=== PATIENT | male | born 1995 | race Caucasian/White ===

== ENCOUNTER 2018-04-16 13:57 | Inpatient (IN) ==
--- NOTE | 2018-04-16 17:41 | ED ---
HPI General Chief Complaint: Neck Pain/Injury Stated Complaint: Physent / neck complaint Time Seen by Provider: 04/16/18 17:03 History of Present Illness HPI Narrative: The patient is a 23-year-old male with a history of 5 years worth of IV drug abuse presenting to the emergency department following the result of an MRI that was done for neck and left shoulder pain. The patient reports that for the past week he has an increase in his left shoulder pain that is worse when he wakes up and has in the past few days developed numbness that radiates from his shoulder down to the thumb index and middle finger. The patient also reports that he has had a stiffness in his neck that has been getting worse over the past week and has given him limited range of motion in his neck. He denies any recent trauma that may have caused symptoms. He denies any alleviating or aggravating factors for his neck stiffness versus left shoulder pain. He denies any fever, chills, nausea, vomiting, abdominal pain, diarrhea, focal weakness, vision changes, headache, or shortness of breath. Related Data Home Medications Medication Instructions Recorded Confirmed No Known Home Medications 04/16/18 04/16/18 Allergies Allergy/AdvReac Type Severity Reaction Status Date / Time No Known Allergies Allergy Unverified 04/16/18 17:35 Review of Systems Constitutional Denies chills and Denies fever(s) Eyes Denies eye pain and Denies photophobia ENT Denies hearing loss and Denies sore throat Cardiovascular Denies chest pain and Denies diaphoresis Respiratory Denies cough and Denies dyspnea Gastrointestinal Denies diarrhea and Denies nausea Genitourinary Denies difficulty urinating and Denies flank pain Musculoskeletal Reports limited range of motion (Left shoulder limited range of motion) and Reports neck pain (Neck stiffness and limited range of motion) Integumentary/Breasts Denies rash and Denies sores Neurologic Denies vertigo, Denies focal weakness and Reports numbness (From left shoulder radiating down to left arm) Psychiatric Denies anxiety and Denies irritability Allergic/Immunologic Denies urticaria and Denies wheezing [facility] Medical History Medical History Patient denies medical problems (Acute) Surgical History Surgical History No history of previous surgery (Acute) Social History Social History Recent Travel in [facility] within the Last 8 Weeks: No Recent Out of Country Travel within the Last 8 Weeks: No Exam Narrative Exam Narrative: GENERAL: Well-developed and thin male appearing in no acute respiratory distress. SKIN: Focused skin assessment warm/dry. Multiple tattoos. HEAD: Atraumatic. Normocephalic. EYES: Pupils equal and round. No scleral icterus. No injection or drainage. ENT: No nasal bleeding or discharge. Mucous membranes pink and moist. NECK: Trachea midline. No JVD. CARDIOVASCULAR: Regular rate and rhythm. No murmur appreciated. RESPIRATORY: No accessory muscle use. Clear to auscultation. Breath sounds equal bilaterally. GASTROINTESTINAL: Abdomen soft, non-tender, nondistended. Hepatic and splenic margins not palpable. MUSCULOSKELETAL: No obvious deformities. No clubbing. No cyanosis. No edema. Mild right lower chest tenderness to palpation. No tenderness, erythema, or edema over the cervical or thoracic vertebrae. Limited neck range of motion on flexion and extension, limited shoulder abduction and adduction. 5/5 strength in all 4 extremities NEUROLOGICAL: Awake and alert. Cranial nerves II through XII were normal. Motor grossly within normal limits. Normal speech. Course Initial Documented Vital Signs Temperature 98.0 F 04/16/18 14:37 Pulse Rate 78 04/16/18 14:37 Respiratory Rate 18 04/16/18 14:37 Blood Pressure 114/68 04/16/18 14:37 Pulse Oximetry 98 04/16/18 14:37 Last Documented Vital Signs Temperature 98.0 F 04/16/18 14:37 Pulse Rate 78 04/16/18 14:37 Respiratory Rate 18 04/16/18 14:37 Blood Pressure 114/68 04/16/18 14:37 Pulse Oximetry 98 04/16/18 14:37 Medical Decision Making [facility] Narrative Medical decision making narrative: The patient is a 23-year-old male with history of IV drug abuse presenting to the emergency department following an MRI that showed an epidural abscess. The patient denies any fever, chills, nausea, or vomiting but does endorse a 5 year history of on and off IV drug abuse. The patient has had limited range of motion of his neck and shoulder with progressive paresthesias down the left arm. This is likely an epidural abscess related to his IV drug abuse. He will be administered IV antibiotics and the neurosurgical team recommends admission. Differential Diagnosis Differential Diagnosis: Epidural abscess versus osteomyelitis versus vertebral seroma versus nerve impingement versus muscle strain versus disc herniation Lab Data Result diagrams: 04/16/18 18:27 04/16/18 18:27 Lab Results 04/16/18 Range/Units 18:27 WBC 11.8 H (4.0-11.0) th/mm3 RBC 4.49 L (4.50-5.90) mil/mm3 Hgb 12.6 L (13.0-17.0) gm/dL Hct 37.3 L (39.0-51.0) % MCV 83.1 (80.0-100.0) fL MCH 28.1 (27.0-34.0) pg MCHC 33.8 (32.0-36.0) % RDW 14.7 (11.6-17.2) % Plt Count 301 (150-450) th/mm3 MPV 7.6 (7.0-11.0) fL Neut % (Auto) 74.2 H (16.0-70.0) % Lymph % (Auto) 17.0 (9.0-44.0) % Lynn % (Auto) 7.1 (0.0-8.0) % Eos % (Auto) 1.1 (0.0-4.0) % Baso % (Auto) 0.6 (0.0-2.0) % Neut # (Auto) 8.8 H (1.8-7.7) th/mm3 Lymph # (Auto) 2.0 (1.0-4.8) th/mm3 Lynn # (Auto) 0.8 (0.0-0.9) th/mm3 Eos # (Auto) 0.1 (0.0-0.4) th/mm3 Baso # (Auto) 0.1 (0.0-0.2) th/mm3 WBC Differential . Differential Comment Auto diff final Imaging Data Radiologist's impression: Chest X-Ray 04/16/18 17:41 CONCLUSION: No active disease. Discharge Plan Discharge Disposition Patient Disposition: 30 Still Patient Discharge Details Diagnosis: Acute osteomyelitis of cervical spine, Abscess in epidural space of cervical spine Physicians Team ED Provider: Rajinder Rdz Primary Care Provider: UNKNOWN, Rxs /Orders / Referrals /Forms Prescriptions: No Action No Known Home Medications RF: 0 Discharge Interventions Interventions: Vital Signs Last Done: 04/16/18 14:37 Status ED Status: With Doctor
[2018-04-16] MEDS ORDERED: HYDROmorphone PF Inj 2 MG/ML Vial IV.PUSH ONE (17:42)
--- NOTE | 2018-04-16 18:07 | XR ---
EXAM DATE: 04/16/2018 6:00 PM EDT AGE/SEX: 23 years / Male INDICATIONS: Chest pain. CLINICAL DATA: This is the patient's initial encounter. Patient reports that signs and symptoms have been present for 1 day and indicates a pain score of 5/10. MEDICAL/SURGICAL HISTORY: None. None. COMPARISON: No prior exams available for comparison. FINDINGS: A single AP view of the chest demonstrates the lungs to be symmetrically aerated without evidence of mass, infiltrate or effusion. The cardiomediastinal contours are unremarkable. Osseous structures a re intact. CONCLUSION: No active disease. Electronically signed by: Jabier Allen MD 04/16/2018 6:06 PM EDT
[2018-04-16] MEDS ORDERED: Bisacodyl 10 MG Supp RECTAL PRN (18:36)
[2018-04-16] MEDS ORDERED: Acetaminophen 325 MG Tablet PO PRN (18:36)
[2018-04-16] MEDS ORDERED: Temazepam 15 MG Capsule PO PRN (18:36)
[2018-04-16 18:51] LABS: Baso # (Auto) 0.1 th/mm3 (0.0-0.2); Baso % (Auto) 0.6 % (0.0-2.0); Eos # (Auto) 0.1 th/mm3 (0.0-0.4); Eos % (Auto) 1.1 % (0.0-4.0); Hematocrit 37.3 % (39.0-51.0); Hemoglobin 12.6 gm/dL (13.0-17.0); Mean Corpuscular HGB Conc 33.8 % (32.0-36.0); Mean Corpuscular Hemoglobin 28.1 pg (27.0-34.0); Mean Corpuscular Volume 83.1 fL (80.0-100.0); Mean Platelet Volume 7.6 fL (7.0-11.0); Mono # (Auto) 0.8 th/mm3 (0.0-0.9); Mono % (Auto) 7.1 % (0.0-8.0); Neut # (Auto) 8.8 th/mm3 (1.8-7.7); Neut % (Auto) 74.2 % (16.0-70.0); Platelet Count 301 th/mm3 (150-450); Red Blood Count 4.49 mil/mm3 (4.50-5.90); Red Cell Distribution Width 14.7 % (11.6-17.2); White Blood Count 11.8 th/mm3 (4.0-11.0)
[2018-04-16 19:00] LABS: Activated Partial Thrombo Time 29.1 sec (24.3-30.1)
[2018-04-16 19:07] LABS: Albumin 3.6 g/dL (3.4-5.0); Anion Gap 7 meq/L (5-15); Aspartate Aminotransferase 7 U/L (15-37); Blood Urea Nitrogen 14 mg/dL (7-18); Calcium 9.5 mg/dL (8.5-10.1); Chloride 101 meq/L (98-107); Glomerular Filtration Rate Greater Than 89 mL/min (>89); Glucose,Random 99 mg/dL (74-106); Potassium 4.3 meq/L (3.5-5.1); Sodium 139 meq/L (136-145)
[2018-04-16 19:08] LABS: Alanine Aminotransferase 20 U/L (12-78)
[2018-04-16 19:11] LABS: Alkaline Phosphatase 104 U/L (45-117); Total Protein 8.2 g/dL (6.4-8.2)
--- NOTE | 2018-04-16 19:44 | P.HPIM ---
History of Present Illness Primary Care Physician: UNKNOWN History of Present Illness: 23-year-old male with a history of IV heroin abuse who presents with one-week history of constant sharp posterior neck pain, constant left shoulder pain radiating to left arm, with associated left hand paresthesias. Patient denies any fevers, chills, chest pain, shortness of breath, nausea, vomiting, lightheadedness, dizziness, dysuria, diarrhea, constipation. Inpatient Certification: I certify that the inpatient services were ordered in accordance with Medicare regulations governing the order. This includes certification that hospital inpatient services are reasonable and necessary and in the case of services not specified as inpatient-only under 42 CFR 419.22(n), that they are appropriately provided as inpatient services in accordance to with the 2-midnight benchmark under 43 CFR 412.3(e) Estimated Total Length of Stay (Days): 10 Plans for Post Hospital Care: Not yet determined Review of Systems All other systems reviewed negative except as stated in HPI PMFSH - History History Provided By: Patient - Medical History Medical History: Medical History (Last Updated 04/16/18 @ 19:42 by Jonathan Saenz MD) Heroin abuse Patient denies medical problems - Surgical History Surgical History: Surgical History (Last Updated 04/16/18 @ 18:47 by Toshia Bone) No history of previous surgery - Family History Family History: Family History (Last Updated 04/16/18 @ 19:41 by Jonathan Saenz MD) Mother Healthy adult Father Diabetes - Tobacco History Second Hand Smoke Exposure: No Tobacco Use In Past 30 Days: Yes Smoking Status: Current every day smoker Tobacco Type: Cigarettes - Alcohol History How Often Do You Have a Drink Containing Alcohol: Never - Substance Use History Substance History: Active Abuse - Substance Use Type Opiates Status: Active Route Used: Intravenously Reason for Use: Get High - Travel History Recent Travel in the [place] Within the Last 8 Weeks: No Recent Travel Out of the Country Within the Last 8 Weeks: No - Immunization History Tetanus Immunization: <5 Years Hx Influenza Vaccine This Season: No Medications and Allergies Active Medications: Active Medications Acetaminophen (Tylenol) 650 mg PO Q4H PRN PRN Reason: Temp > 100.4 Al Hydroxide/Mg Hydroxide (Milk Of Magnesia Liq) 30 ml PO Q12H PRN PRN Reason: Mild Constipation Bisacodyl (Dulcolax Supp) 10 mg RECTAL DAILY PRN PRN Reason: SEVERE CONSITIPATION Lactulose (Lactulose Liq) 30 ml PO DAILY PRN PRN Reason: SEVERE CONSITIPATION Sennosides (Senokot) 17.2 mg PO Q12H PRN PRN Reason: Moderate Constipation Temazepam (Restoril) 15 mg PO HS PRN PRN Reason: INSOMNIA Allergies Allergy/AdvReac Type Severity Reaction Status Date / Time No Known Allergies Allergy Unverified 04/16/18 17:35 Home Medications Medication Instructions Recorded Confirmed Type No Known Home Medications 04/16/18 04/16/18 History Exam Vital signs: Vital Signs 04/16/18 14:37 Temperature 98.0 F Pulse Rate 78 Respiratory Rate 18 Blood Pressure 114/68 Pulse Oximetry 98 Intake & Output 04/16/18 04/16/18 04/17/18 06:59 18:59 06:59 Weight 74.843 kg Narrative: GENERAL: Patient sitting in bed. Appears comfortable. SKIN: Warm and dry. HEAD: Atraumatic. Normocephalic. EYES: Pupils equal and round. No scleral icterus. No injection or drainage. ENT: No nasal bleeding or discharge. Mucous membranes pink and moist. NECK: Trachea midline. No JVD. CARDIOVASCULAR: Regular rate and rhythm. RESPIRATORY: No accessory muscle use. Clear to auscultation. Breath sounds equal bilaterally. GASTROINTESTINAL: Abdomen soft, non-tender, nondistended. Hepatic and splenic margins not palpable. MUSCULOSKELETAL: Extremities without clubbing, cyanosis, or edema. No obvious deformities. NEUROLOGICAL: Awake and alert. No obvious cranial nerve deficits. Motor grossly within normal limits. Five out of 5 muscle strength in the arms and legs. Normal speech. PSYCHIATRIC: Appropriate mood and affect; insight and judgment normal. Results - Labs CBC & Chem 7: 04/16/18 18:27 04/16/18 18:27 Labs: Short CBC 04/16/18 Range/Units 18:27 WBC 11.8 H (4.0-11.0) th/mm3 Hgb 12.6 L (13.0-17.0) gm/dL Hct 37.3 L (39.0-51.0) % Plt Count 301 (150-450) th/mm3 BMP 04/16/18 18:27 Sodium 139 Potassium 4.3 Chloride 101 Carbon Dioxide 31.0 BUN 14 Creatinine 0.91 Calcium 9.5 Liver Function 08/02/18 Range/Units 18:27 Total Bilirubin 0.4 (0.2-1.0) mg/dL AST 7 L (15-37) U/L ALT 20 (12-78) U/L Alkaline Phosphatase 104 (45-117) U/L Albumin 3.6 (3.4-5.0) g/dL - Imaging Impressions Chest X-Ray 04/16/18 17:41 CONCLUSION: No active disease. Caprini VTE Risk Assessment Caprini VTE Risk Assessment: No/Low Risk (score <= 1) Caprini Risk Assessment Model: Point Value = 1 Point Value = 2 Point Value = 3 Point Value = 5 Age 41-60 Minor surgery BMI > 25 kg/m2 Swollen legs Varicose veins or History of unexplained or recurrent spontaneous Oral contraceptives or hormone replacement Sepsis (< 1 month) Serious lung disease, including pneumonia (< 1 month) Abnormal pulmonary function Acute myocardial infarction Congestive heart failure (< 1 month) History of inflammatory bowel disease Medical patient at bed rest Age 61-74 Arthroscopic surgery Major open surgery (> 45 min) Laparoscopic surgery (> 45 min) Malignancy Confined to bed (> 72 hours) Immobilizing plaster cast Central venous access Age >= 75 History of VTE Family history of VTE Factor V Leiden Prothrombin [id number] Lupus anticoagulant Anticardiolipin antibodies Elevated serum homocysteine Heparin-induced thrombocytopenia Other congenital or acquired thrombophilia Stroke (< 1 month) Elective arthroplasty Hip, pelvis, or leg fracture Acute spinal cord injury (< 1 month) Prophylaxis Regimen: Total Risk Factor Score Risk Level Prophylaxis Regimen 0-1 Low Early ambulation 2 Moderate Order ONE of the following: *Sequential Compression Device (SCD) *Heparin 5000 units SQ BID 3-4 Higher Order ONE of the following medications: *Heparin 5000 units SQ TID *Enoxaparin/Lovenox 40 mg SQ daily (WT < 150 kg, CrCl > 30 mL/min) *Enoxaparin/Lovenox 30 mg SQ daily (WT < 150 kg, CrCl > 10-29 mL/min) *Enoxaparin/Lovenox 30 mg SQ BID (WT < 150 kg, CrCl > 30 mL/min) AND/OR *Sequential Compression Device (SCD) 5 or more Highest Order ONE of the following medications: *Heparin 5000 units SQ TID (Preferred with Epidurals) *Enoxaparin/Lovenox 40 mg SQ daily (WT < 150 kg, CrCl > 30 mL/min) *Enoxaparin/Lovenox 30 mg SQ daily (WT < 150 kg, CrCl > 10-29 mL/min) *Enoxaparin/Lovenox 30 mg SQ BID (WT < 150 kg, CrCl > 30 mL/min) AND *Sequential Compression Device (SCD) Assessment and Plan - Plan //Suspected epidural abscess //Left upper extremity paresthesias -Likely secondary to IV drug use. = With outside MRI positive for epidural abscess Neurosurgery consulted. Appreciate assistance. = ESR 71, white blood cell count 11.8. Vitals within normal limits. = Await neurosurgery recommendations. Likely will need biopsy for cultures. Then can start antibiotics = Plan to consult infectious disease in the morning when cultures are obtained. //Left shoulder pain. Likely secondary to epidural abscess as above, however patient does have an incomplete right bundle branch block. Will check troponin. If this is negative, given patient's one-week duration of pain it is unlikely cardiac in nature. //Leukocytosis of 11.8. Likely secondary to infection from epidural abscess. Vitals otherwise stable. Continue to monitor //Tobacco abuse. Cessation counseling provided. //IV drug use. Heroin abuse Cessation counseling provided. Discussed Condition With: Patient, nurse, Dr. Fonseca
--- NOTE | 2018-04-16 20:41 | P.CONNS ---
History of Present Illness Service: Neurosurgery Consult date: 04/16/18 Requesting Physician: Rajinder Rdz Reason for Consult: Cervical discitis Primary Care Provider: UNKNOWN Chief Complaint: Neck and left shoulder, upper extremity pain History of Present Illness: 23-year-old male who states that 4 weeks ago he developed severe neck pain without radiation to the upper extremities. The pain was quite severe for approximately a week, then gradually subsided. He persisted with mostly moderate neck pain up until a week ago, when he developed pain radiating down the left shoulder and primarily dorsal aspect of the left arm and forearm with numbness in the same distribution as well as the first 3 digits of the left hand. No right upper extremity symptoms. He denies any fever chills or sweats in the past month. No blurred vision diplopia headaches. No confusion speech difficulty. No skin lesions or rash. No bowel or bladder dysfunction. No difficulty with pain weakness numbness in the lower extremities or difficulty with ambulation. He is a steady IV drug abuser. Review of Systems Constitutional: Denies anorexia, Denies body ache(s), Denies chills, Denies headache(s), Denies night sweats, Denies weakness, Denies weight loss Eyes: Denies blurry vision, Denies double vision Ears, Nose, Mouth, and Throat: Reports ringing in the ears, Denies abnormal hearing, Denies difficulty swallowing, Denies dizziness, Denies mouth lesions, Denies pain with swallowing Cardiovascular: Denies chest pain, Denies irregular heart rhythm Respiratory: Denies chest congestion, Denies cough, Denies shortness of breath Gastrointestinal: Denies abdominal pain, Denies nausea Genitourinary: Denies difficulty urinating Musculoskeletal: Reports neck pain, Reports numbness, Reports radiating pain into limb, Denies back pain, Denies body aches, Denies muscle weakness Neurologic: Denies abnormal speech, Denies confusion PMFSH - History History Provided By: Patient - Medical / Surgical Hx Neg / Unobtainable Medical Problems Denied: Yes Surgical History: (Right shoulder surgery) - Medical History Medical History: Medical History (Last Updated 04/16/18 @ 19:42 by Jonathan Saenz MD) Heroin abuse Patient denies medical problems - Surgical History Surgical History: Surgical History (Last Updated 04/16/18 @ 18:47 by Toshia Bone) No history of previous surgery - Family History Family History: Family History (Last Updated 04/16/18 @ 19:41 by Jonathan Saenz MD) Mother Healthy adult Father Diabetes - Tobacco History Second Hand Smoke Exposure: No Tobacco Use In Past 30 Days: Yes Smoking Status: Current every day smoker Tobacco Type: Cigarettes Packs Per Day: 1 - Alcohol History How Often Do You Have a Drink Containing Alcohol: Never - Substance Use History Substance History: Active Abuse - Substance Use Type Opiates Status: Active Route Used: Intravenously Reason for Use: Get High - Travel History Recent Travel in the [place] Within the Last 8 Weeks: No Recent Travel Out of the Country Within the Last 8 Weeks: No - Immunization History Tetanus Immunization: <5 Years Hx Influenza Vaccine This Season: No Medications and Allergies Active Medications: Active Medications Acetaminophen (Tylenol) 650 mg PO Q4H PRN PRN Reason: Temp > 100.4 Al Hydroxide/Mg Hydroxide (Milk Of Magnesia Liq) 30 ml PO Q12H PRN PRN Reason: Mild Constipation Bisacodyl (Dulcolax Supp) 10 mg RECTAL DAILY PRN PRN Reason: SEVERE CONSITIPATION Lactulose (Lactulose Liq) 30 ml PO DAILY PRN PRN Reason: SEVERE CONSITIPATION Sennosides (Senokot) 17.2 mg PO Q12H PRN PRN Reason: Moderate Constipation Temazepam (Restoril) 15 mg PO HS PRN PRN Reason: INSOMNIA Allergies Allergy/AdvReac Type Severity Reaction Status Date / Time No Known Allergies Allergy Unverified 04/16/18 17:35 Home Medications Medication Instructions Recorded Confirmed Type No Known Home Medications 04/16/18 04/16/18 History Exam Vital signs: Vital Signs 04/16/18 14:37 Temperature 98.0 F Pulse Rate 78 Respiratory Rate 18 Blood Pressure 114/68 Pulse Oximetry 98 Intake & Output 04/16/18 04/16/18 04/17/18 06:59 18:59 06:59 Weight 74.843 kg Narrative: GENERAL: This is a well-nourished, well-developed patient, no apparent distress. SKIN: No abrasions, contusion, rash noted. Skin warm and dry. HEAD: Atraumatic. Normocephalic. No temporal or scalp tenderness. EYES: Sclerae are clear and nonicteric ENT: No facial edema or ecchymosis. No periorbital edema. No CSF otorrhea or rhinorrhea. No palpable facial fracture or deformity. NECK: Trachea midline. No cervical spine tenderness. CARDIOVASCULAR: Regular rate and rhythm without murmurs, gallops, or rubs. RESPIRATORY: Clear to auscultation. Breath sounds equal bilaterally. No wheezes , rales, or rhonchi. GASTROINTESTINAL: Abdomen soft, non-tender, nondistended. No hepato-splenomegaly , or palpable masses. No guarding. MUSCULOSKELETAL: Extremities without cyanosis, or edema. No joint tenderness, or edema noted. No calf tenderness. Dorsalis pedis pulses 2+ bilateral NEUROLOGICAL: Awake and alert Oriented X 3 Speech is clear Conversant and appropriate Follow simple commands well Answers questions appropriately Reasonable judgment and insight Recent and remote memory are intact No evidence of anxiety or depression Pupils are equal and reactive to accommodation. Extra-ocular movements, visual rodriguez to confrontation, facial sensorimotor, tongue, palate, sternocleidomastoid testing, hearing to finger rub testing, and bilateral shoulder shrug are all intact. Sensation is intact to light touch in all extremities except for mild decreased sensation light touch dorsal left forearm and first 3 digits left hand Strength normal major flexion and extension groups all extremities Jimmy's absent bilaterally No ankle clonus Plantar responses absent bilateral Fine motor movements intact upper extremities Results - Laboratory Findings CBC and BMP: 04/16/18 18:27 04/16/18 18:27 Abnormal lab findings: Abnormal Labs 04/16/18 04/16/18 08 18:27 18:27 18:27 WBC 11.8 H RBC 4.49 L Hgb 12.6 L Hct 37.3 L Neut % (Auto) 74.2 H Neut # (Auto) 8.8 H ESR 71 H AST 7 L Troponin I 04/16/18 18:27 WBC RBC Hgb Hct Neut % (Auto) Neut # (Auto) ESR AST Troponin I Less than 0.02 L - Diagnostic Findings Additional findings: 04/16/2018 MRI of the cervical spine from [facility] images are reviewed by the undersigned. The study reveals significant increased signal intensity on T2 images within the C6 and C7 vertebral bodies with severe loss of the normal intervertebral disc space. There is mild to moderate C6-7 anterior listhesis with mild facet separation and subluxation as well as significant widening of the spinous processes. There is a moderate abnormal area of increased signal intensity at the posterior C6-7 disc space level causing moderate impression on the anterior thecal sac. There is a small fluid collection in this region. However the posterior longitudinal ligament appears to be intact. There is no definite fluid or abscess in the epidural space itself. No spinal cord compression. The neural foramina appear to be of adequate dimensions, but there may be some abnormal signal intensity at the left C6-7 foramen indicating possibly some inflammation in this region. Assessment and Plan - Plan Impression: 1. Findings consistent with C6-7 discitis, osteomyelitis. There is a small area of fluid at the region of inflammation and probable disc displacement at the C6-7 level but this is well contained by the posterior longitudinal ligament with no definite focal abscess in the epidural space itself. The findings on the MRI as well as the patient's history would indicate that this is likely a subacute process, likely starting approximately 4 weeks ago with onset of his severe neck pain, with the more recent symptoms in the past week likely indicating left C7 radiculopathy related to collapse of the disc space and subluxation with left C7 nerve impingement. There may be some inflammation around the exiting left C7 nerve root. No indication of spinal cord compression or abnormal signal intensity within the cord. Recommendations: Findings were discussed at length with the patient. Given that this looks like a subacute process, and there is no evidence of gross epidural abscess, it would be reasonable to hold antibiotics initially pending the results of the blood cultures. The potential need for surgical intervention has been discussed with the patient. If blood cultures are positive, and depending on infectious disease recommendations, it may be possible to initially treat this conservatively with close follow-up of his imaging studies. If he develops a focal left C7 deficit or continues to have significant pain despite treatment or develops progressive disease on serial imaging studies, then surgical intervention may be required. If initial cultures are negative and tissue is needed for diagnosis, or any progressive radicular symptoms or deficit appear, then surgical intervention may be undertaken.
--- NOTE | 2018-04-17 04:56 | P.PNIM ---
Subjective Interval history: Patient reports abdominal discomfort has improved somewhat. Denies any chest pain or shortness of breath. Patient says he is very hungry Physical Exam Vital signs: Vital Signs 04/16/18 14:37 04/16/18 21:15 04/17/18 00:00 Temperature 98.0 F 98.2 F 98 F Pulse Rate 78 73 67 Respiratory Rate 18 16 16 Blood Pressure 114/68 106/59 L 106/60 Pulse Oximetry 98 98 99 Intake & Output 04/16/18 04/16/18 04/17/18 06:59 18:59 06:59 Intake Total 0 / 0 Balance 0 / 0 Weight 74.843 kg 78 kg Intake: Oral 0 / 0 Other: # Voids 1 Date of Last Bowel Movement 04/15/18 # Bowel Movements 0 Narrative: GENERAL: Patient lying in bed. Appears comfortable. SKIN: Warm and dry. HEAD: Normocephalic. EYES: No scleral icterus. No injection or drainage. NECK: Supple, trachea midline. No JVD. CARDIOVASCULAR: Regular rate and rhythm without murmurs, gallops, or rubs. RESPIRATORY: Breath sounds equal bilaterally. No accessory muscle use. GASTROINTESTINAL: Abdomen soft, non-tender, nondistended. MUSCULOSKELETAL: No cyanosis, or edema. BACK: Nontender without obvious deformity. No CVA tenderness. Results - Labs CBC & Chem 7: 04/16/18 18:27 04/16/18 18:27 Laboratory Results - last 24 hr 04/16/18 04/16/18 04/16/18 18:27 18:27 18:27 WBC 11.8 H RBC 4.49 L Hgb 12.6 L Hct 37.3 L MCV 83.1 MCH 28.1 MCHC 33.8 RDW 14.7 Plt Count 301 MPV 7.6 Neut % (Auto) 74.2 H Lymph % (Auto) 17.0 Travis % (Auto) 7.1 Eos % (Auto) 1.1 Baso % (Auto) 0.6 Neut # (Auto) 8.8 H Lymph # (Auto) 2.0 Travis # (Auto) 0.8 Eos # (Auto) 0.1 Baso # (Auto) 0.1 WBC Differential . Differential Comment Auto diff final ESR PT 10.0 INR 1.0 APTT 29.1 Sodium 139 Potassium 4.3 Chloride 101 Carbon Dioxide 31.0 Anion Gap 7 BUN 14 Creatinine 0.91 Estimated GFR Greater than 89 Random Glucose 99 Calcium 9.5 Total Bilirubin 0.4 AST 7 L ALT 20 Alkaline Phosphatase 104 Lactate Dehydrogenase Troponin I Total Protein 8.2 Albumin 3.6 04/16/18 04/16/18 04/16/18 18:27 18:27 18:27 WBC RBC Hgb Hct MCV MCH MCHC RDW Plt Count MPV Neut % (Auto) Lymph % (Auto) Travis % (Auto) Eos % (Auto) Baso % (Auto) Neut # (Auto) Lymph # (Auto) Travis # (Auto) Eos # (Auto) Baso # (Auto) WBC Differential Differential Comment ESR 71 H PT INR APTT Sodium Potassium Chloride Carbon Dioxide Anion Gap BUN Creatinine Estimated GFR Random Glucose Calcium Total Bilirubin AST ALT Alkaline Phosphatase Lactate Dehydrogenase 128 Troponin I Less than 0.02 L Total Protein Albumin - Imaging Impressions Chest X-Ray 04/16/18 17:41 CONCLUSION: No active disease. Assessment and Plan - Plan //Suspected spinal osteomyelitis. //Left upper extremity paresthesias -Likely secondary to IV drug use. = With outside MRI positive for epidural abscess Neurosurgery consulted. Appreciate assistance. = ESR 71, white blood cell count 11.8. Vitals within normal limits. = Await neurosurgery recommendations. Likely will need biopsy for cultures. Then can start antibiotics = Plan to consult infectious disease in the morning when cultures are obtained. = 04/17. Reviewed neurosurgery recommendations. We will continue to hold off on antibiotics. Follow-up blood cultures. Consult infectious disease. //Left shoulder pain. //Right bundle branch block. Uncertain chronicity. Likely baseline. Likely secondary to epidural abscess as above, however patient does have an incomplete right bundle branch block. Will check troponin. If this is negative , given patient's one-week duration of pain it is unlikely cardiac in nature. = 04/17. Troponin negative at less than 0.02. //Leukocytosis of 11.8. Likely secondary to infection from epidural abscess. Vitals otherwise stable. Continue to monitor. = 04/17. Follow-up labs from this morning. //Tobacco abuse. Cessation counseling provided. //IV drug use. Heroin abuse Cessation counseling provided. Discharge Planning: Pending neurosurgery and ID clearance.
[2018-04-17 08:39] LABS: Baso # (Auto) 0.1 th/mm3 (0.0-0.2); Baso % (Auto) 0.8 % (0.0-2.0); Eos # (Auto) 0.3 th/mm3 (0.0-0.4); Eos % (Auto) 2.7 % (0.0-4.0); Hematocrit 39.4 % (39.0-51.0); Hemoglobin 13.1 gm/dL (13.0-17.0); Lymph # (Auto) 2.9 th/mm3 (1.0-4.8); Lymph % (Auto) 25.6 % (9.0-44.0); Mean Corpuscular HGB Conc 33.2 % (32.0-36.0); Mean Corpuscular Hemoglobin 27.6 pg (27.0-34.0); Mean Corpuscular Volume 83.1 fL (80.0-100.0); Mean Platelet Volume 7.4 fL (7.0-11.0); Mono # (Auto) 0.8 th/mm3 (0.0-0.9); Mono % (Auto) 7.4 % (0.0-8.0); Neut # (Auto) 7.2 th/mm3 (1.8-7.7); Neut % (Auto) 63.5 % (16.0-70.0); Platelet Count 305 th/mm3 (150-450); Red Blood Count 4.74 mil/mm3 (4.50-5.90); Red Cell Distribution Width 14.9 % (11.6-17.2); White Blood Count 11.3 th/mm3 (4.0-11.0)
--- NOTE | 2018-04-17 08:48 | ECG ---
Date Performed: 04/16/2018 Time Performed: 16:58:27 PTAGE: 23 years EKG: Sinus rhythm WITH SINUS ARRHYTHMIA RIGHT VENTRICULAR CONDUCTION DELAY BORDERLINE ECG NO PREVIOUS TRACING DOCTOR: James Gresham Interpretating Date/Time 04/17/2018 08:46:04
[2018-04-17 09:12] LABS: Alanine Aminotransferase 19 U/L (12-78); Albumin 3.5 g/dL (3.4-5.0); Anion Gap 6 meq/L (5-15); Aspartate Aminotransferase 9 U/L (15-37); Blood Urea Nitrogen 12 mg/dL (7-18); Calcium 9.4 mg/dL (8.5-10.1); Carbon Dioxide 31.5 meq/L (21.0-32.0); Chloride 102 meq/L (98-107); Glomerular Filtration Rate Greater Than 89 mL/min (>89); Glucose,Random 89 mg/dL (74-106); Potassium 4.9 meq/L (3.5-5.1); Sodium 139 meq/L (136-145)
[2018-04-17 09:14] LABS: Alkaline Phosphatase 107 U/L (45-117); Total Protein 8.1 g/dL (6.4-8.2)
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
--- NOTE | 2018-04-17 19:58 | P.PNNS ---
Subjective Interval history: No new complaints. Remains with moderate neck pain. Still numbness and intermittent aching pain primarily dorsal left upper extremity, numbness paresthesias primarily first through third digits left hand. No headache. No complaint of fevers chills Physical Exam Vital signs: Vital Signs 04/16/18 21:15 04/17/18 00:00 04/17/18 04:00 Temperature 98.2 F 98 F 98 F Pulse Rate 73 67 63 Respiratory Rate 16 16 16 Blood Pressure 106/59 L 106/60 117/80 Pulse Oximetry 98 99 100 04/17/18 08:00 04/17/18 12:00 Temperature 98.8 F 97.8 F Pulse Rate 83 94 H Respiratory Rate 16 16 Blood Pressure 132/73 130/69 Pulse Oximetry 100 100 Intake & Output 04/17/18 04/17/18 04/18/18 06:59 18:59 06:59 Intake Total 78 / 78 Balance 78 / 78 Weight 78 kg Intake: Oral Other: # Voids 2 Date of Last Bowel Movement 04/15/18 04/15/18 # Bowel Movements 0 Narrative: Awake and alert Oriented X 3 Speech is clear Conversant and appropriate Follow simple commands well Answers questions appropriately Reasonable judgment and insight Recent and remote memory are intact No evidence of anxiety or depression Extra-ocular movements, visual rodriguez to confrontation, facial sensorimotor testing intact Sensation is intact to light touch in all extremities except diminished dorsal left forearm and first through third digits of the left hand with complaint of mild to moderate numbness. Strength normal major flexion and extension groups all extremities Jimmy's absent bilaterally Assessment and Plan - Plan Impression: 1. Findings consistent with C6-7 discitis, osteomyelitis. There is a small area of fluid at the region of inflammation and probable disc displacement at the C6-7 level but this is well contained by the posterior longitudinal ligament with no definite focal abscess in the epidural space itself. The findings on the MRI as well as the patient's history would indicate that this is likely a subacute process, likely starting approximately 4 weeks ago with onset of his severe neck pain, with the more recent symptoms in the past week likely indicating left C7 radiculopathy related to collapse of the disc space and subluxation with left C7 nerve impingement. There may be some inflammation around the exiting left C7 nerve root. No indication of spinal cord compression or abnormal signal intensity within the cord. Recommendations: Infectious disease notes reviewed. Given that this looks like a subacute process, and there is no evidence of gross epidural abscess, it would be reasonable to hold antibiotics initially pending the results of the blood cultures. The potential need for surgical intervention has been previously discussed with the patient. If blood cultures are positive, and depending on infectious disease recommendations, it may be possible to initially treat this conservatively with close follow-up of his imaging studies. If he develops a focal left C7 deficit or continues to have significant pain despite treatment or develops progressive disease on serial imaging studies, then surgical intervention may be required. If initial cultures are negative and tissue is needed for diagnosis, or any progressive radicular symptoms or deficit appear, then surgical intervention may be undertaken.
--- NOTE | 2018-04-18 09:12 | P.PN ---
Physical Exam Vital signs: Vital Signs 04/17/18 12:00 04/17/18 20:00 04/18/18 00:00 Temperature 97.8 F 98 F 97.8 F Pulse Rate 94 H 96 H 87 Respiratory Rate 16 18 18 Blood Pressure 130/69 117/61 106/55 L Pulse Oximetry 100 98 95 04/18/18 04:00 Temperature 98.5 F Pulse Rate 95 H Respiratory Rate 18 Blood Pressure 112/56 L Pulse Oximetry 95 Intake & Output 04/17/18 04/18/18 04/18/18 18:59 06:59 18:59 Weight 78 kg Other: # Voids 4 Date of Last Bowel Movement 04/15/18 04/17/18 Narrative: Subjective Interval history: F/o suspected spinal osteomyelitis in IVDU - heroin user In the chair . Says he has numbness ion his left habd and some pain in his neck No fever or chills. no n/v/d/c. Eating well. Ambulates without difficulty Physical Exam GENERAL: Patient lying in bed. Appears comfortable. CARDIOVASCULAR: Regular rate and rhythm without murmurs, gallops, or rubs. RESPIRATORY: Breath sounds equal bilaterally. No accessory muscle use. GASTROINTESTINAL: Abdomen soft, non-tender, nondistended. MUSCULOSKELETAL: No cyanosis, or edema. BACK: Nontender without obvious deformity. No CVA tenderness. Assessment and Plan Young 23 yo male Suspected spinal osteomyelitis. Left upper extremity paresthesias -Likely secondary to IV drug use. = With outside MRI positive for epidural abscess Neurosurgery consulted. Appreciate assistance. = ESR 71, white blood cell count 11.8. Vitals within normal limits. = Await neurosurgery recommendations. Likely will need biopsy for cultures. Then can start antibiotics = Plan to consult infectious disease in the morning when cultures are obtained. Hold off on antibiotics. Follow-up blood cultures. Consult infectious disease. POss surgery on Friday Left shoulder pain. Right bundle branch block. Uncertain chronicity. Likely baseline. Likely secondary to epidural abscess as above, however patient does have an incomplete right bundle branch block. Will check troponin. If this is negative , given patient's one-week duration of pain it is unlikely cardiac in nature. = 04/17. Troponin negative at less than 0.02. Leukocytosis of 11.8. Likely secondary to infection from epidural abscess. Vitals otherwise stable. Continue to monitor. = 04/17. Follow-up labs from this morning. Tobacco abuse. Cessation counseling provided. IV drug use. Heroin abuse Cessation counseling provided. Discharge Planning: Pending improvement and neurosurgery and ID clearance. Poss surg on Friday . Results - Labs CBC & Chem 7: 04/17/18 07:57 04/17/18 07:57 Laboratory Results - last 24 hr 04/17/18 07:57 Sodium 139 Potassium 4.9 Chloride 102 Carbon Dioxide 31.5 Anion Gap 6 BUN 12 Creatinine 0.75 Estimated GFR Greater than 89 Random Glucose 89 Calcium 9.4 Total Bilirubin 0.5 AST 9 L ALT 19 Alkaline Phosphatase 107 Total Protein 8.1 Albumin 3.5 Microbiology 04/16/18 18:27 Blood - Peripheral Aerobic Blood Culture - Preliminary No growth in 1 day 04/16/18 18:27 Blood - Peripheral Anaerobic Blood Culture - Preliminary No growth in 1 day 04/16/18 18:27 Blood - Peripheral Aerobic Blood Culture - Preliminary No growth in 1 day 04/16/18 18:27 Blood - Peripheral Anaerobic Blood Culture - Preliminary No growth in 1 day - Imaging Impressions Chest X-Ray 04/16/18 17:41 CONCLUSION: No active disease.
--- NOTE | 2018-04-18 14:27 | P.PNADD ---
Addendum to Inpatient Note Additional information: case dw Dr Angel Pt bx can be done only by neurosurgeon given the location If blood clx remain negative Dr Angel will take him to OR on Friday Plan: cont off abx Notify me in case of fever or neurological changes
--- NOTE | 2018-04-18 19:56 | P.PNNS ---
Subjective Interval history: No new complaints from the patient today. No headache. Mostly mild to moderate neck pain. Persistent numbness and paresthesias left forearm and hand. No complaint of fevers or chills. No nausea or vomiting Physical Exam Vital signs: Vital Signs 04/17/18 20:00 04/18/18 00:00 04/18/18 04:00 Temperature 98 F 97.8 F 98.5 F Pulse Rate 96 H 87 95 H Respiratory Rate 18 Blood Pressure 117/61 106/55 L 112/56 L Pulse Oximetry 98 95 95 04/18/18 08:00 04/18/18 12:00 04/18/18 16:00 Temperature 97.3 F L 98 F 97.9 F Pulse Rate 86 78 85 Respiratory Rate 16 16 16 Blood Pressure 111/55 L 103/63 103/57 L Pulse Oximetry 100 100 98 Intake & Output 04/18/18 04/18/18 04/19/18 06:59 18:59 06:59 Output Total 5 / 5 Balance -5 / -5 Weight 78 kg Output: Urine 5 / 5 Other: # Voids 4 Date of Last Bowel Movement 04/17/18 04/17/18 Narrative: Awake and alert conversant appropriate No nuchal rigidity. Minimal neck tenderness. Sensation mildly diminished first through third digits left hand. Upper extremity motor strength normal Assessment and Plan - Plan Impression: 1. Findings consistent with C6-7 discitis, osteomyelitis. There is a small area of fluid at the region of inflammation and probable disc displacement at the C6-7 level but this is well contained by the posterior longitudinal ligament with no definite focal abscess in the epidural space itself. The findings on the MRI as well as the patient's history would indicate that this is likely a subacute process, likely starting approximately 4 weeks ago with onset of his severe neck pain, with the more recent symptoms in the past week likely indicating left C7 radiculopathy related to collapse of the disc space and subluxation with left C7 nerve impingement. There may be some inflammation around the exiting left C7 nerve root. No indication of spinal cord compression or abnormal signal intensity within the cord. Recommendations: Discussed patient with infectious disease today. Cultures negative so far. Given that this looks like a subacute process, and there is no evidence of gross epidural abscess, it would be reasonable to hold antibiotics initially pending the results of the blood cultures. The potential need for surgical intervention has been previously discussed with the patient. If blood cultures are positive, and depending on infectious disease recommendations, it may be possible to initially treat this conservatively with close follow-up of his imaging studies. If he develops a focal left C7 deficit or continues to have significant pain despite treatment or develops progressive disease on serial imaging studies, then surgical intervention may be required. If initial cultures are negative and tissue is needed for diagnosis, or any progressive radicular symptoms or deficit appear, then surgical intervention may be undertaken. At this point anticipate that he will need to go for surgical intervention on 04/20/2018 if cultures remain negative.
--- NOTE | 2018-04-19 09:43 | P.PN ---
Physical Exam Vital signs: Vital Signs 04/18/18 12:00 04/18/18 16:00 04/18/18 20:00 Temperature 98 F 97.9 F 98.3 F Pulse Rate 78 85 82 Respiratory Rate 18 Blood Pressure 103/63 103/57 L 105/62 Pulse Oximetry 100 98 98 04/19/18 00:00 04/19/18 04:00 04/19/18 08:00 Temperature 98.0 F 98.2 F 98 F Pulse Rate 85 84 83 Respiratory Rate 20 Blood Pressure 118/64 108/65 128/62 Pulse Oximetry 100 98 100 Intake & Output 04/18/18 04/19/18 04/19/18 18:59 06:59 18:59 Output Total 5 / 5 Balance -5 / -5 Weight 75.9 kg Output: Urine 5 / 5 Other: # Voids 2 Date of Last Bowel Movement 04/17/18 04/17/18 Narrative: Subjective Interval history: F/o suspected spinal osteomyelitis in IVDU - heroin user Numbness in his left hand and mild pain in his neck the same. No new motor deficit. Ambulating without any problems. No fever or chills. no n/v/d/c. Eating well. Physical Exam GENERAL: Patient is a young male, appears in nad. CARDIOVASCULAR: Regular rate and rhythm without murmurs, gallops, or rubs. RESPIRATORY: Breath sounds equal bilaterally. No accessory muscle use. GASTROINTESTINAL: Abdomen soft, non-tender, nondistended. MUSCULOSKELETAL: No cyanosis, or edema. BACK: Nontender without obvious deformity. No CVA tenderness. NEURO: Paresthesia right arm. Assessment and Plan Young 23 yo male Suspected spinal osteomyelitis. Left upper extremity paresthesias -Likely secondary to IV drug use. = With outside MRI positive for epidural abscess Neurosurgery consulted. Appreciate assistance. = ESR 71, white blood cell count 11.8. Vitals within normal limits. = Await neurosurgery recommendations. Likely will need biopsy for cultures. Then can start antibiotics = Plan to consult infectious disease in the morning when cultures are obtained. Hold off on antibiotics. Follow-up blood cultures. Consult infectious disease. POss surgery on Friday Left shoulder pain. Right bundle branch block. Uncertain chronicity. Likely baseline. Likely secondary to epidural abscess as above, however patient does have an incomplete right bundle branch block. Will check troponin. If this is negative , given patient's one-week duration of pain it is unlikely cardiac in nature. = 04/17. Troponin negative at less than 0.02. Leukocytosis of 11.8. Likely secondary to infection from epidural abscess. Vitals otherwise stable. Continue to monitor. = 04/17. Follow-up labs from this morning. Tobacco abuse. Cessation counseling provided. IV drug use. Heroin abuse Cessation counseling provided. Discharge Planning: Pending improvement and neurosurgery and ID clearance. Anticipate surgical intervention on 04/20/[address] cultures remain negative[address] Dr Mcnally neurosurgery ff. Results - Labs CBC & Chem 7: 04/17/18 07:57 04/17/18 07:57 Microbiology 04/16/18 18:27 Blood - Peripheral Aerobic Blood Culture - Preliminary No growth in 2 days 04/16/18 18:27 Blood - Peripheral Anaerobic Blood Culture - Preliminary No growth in 2 days 04/16/18 18:27 Blood - Peripheral Aerobic Blood Culture - Preliminary No growth in 2 days 04/16/18 18:27 Blood - Peripheral Anaerobic Blood Culture - Preliminary No growth in 2 days
--- NOTE | 2018-04-19 23:57 | P.PNNS ---
Physical Exam Vital signs: Vital Signs 04/19/18 00:00 04/19/18 04:00 04/19/18 08:00 Temperature 98.0 F 98.2 F 98 F Pulse Rate 85 84 83 Respiratory Rate 18 18 20 Blood Pressure 118/64 108/65 128/62 Pulse Oximetry 100 98 100 04/19/18 12:00 04/19/18 16:00 04/19/18 20:00 Temperature 97.9 F 97.8 F 97.6 F Pulse Rate 101 H 70 60 Respiratory Rate 20 20 18 Blood Pressure 137/75 120/58 L 121/58 L Pulse Oximetry 100 97 98 Intake & Output 04/19/18 04/19/18 04/20/18 06:59 18:59 06:59 Weight 75.9 kg Other: # Voids 2 1 Date of Last Bowel Movement 04/17/18 Narrative: Subjective Interval history: F/o suspected spinal osteomyelitis in IVDU - heroin user Numbness in his left hand and mild pain in his neck the same. No new motor deficit. Ambulating without any problems. No fever or chills. no n/v/d/c. Eating well. Physical Exam GENERAL: Patient is a young male, appears in nad. CARDIOVASCULAR: Regular rate and rhythm without murmurs, gallops, or rubs. RESPIRATORY: Breath sounds equal bilaterally. No accessory muscle use. GASTROINTESTINAL: Abdomen soft, non-tender, nondistended. MUSCULOSKELETAL: No cyanosis, or edema. BACK: Nontender without obvious deformity. No CVA tenderness. NEURO: Paresthesia right arm. Assessment and Plan Young 23 yo male Suspected spinal osteomyelitis. Left upper extremity paresthesias -Likely secondary to IV drug use. = With outside MRI positive for epidural abscess Neurosurgery consulted. Appreciate assistance. = ESR 71, white blood cell count 11.8. Vitals within normal limits. = Await neurosurgery recommendations. Likely will need biopsy for cultures. Then can start antibiotics = Plan to consult infectious disease in the morning when cultures are obtained. Hold off on antibiotics. Follow-up blood cultures. Consult infectious disease. POss surgery on Friday Left shoulder pain. Right bundle branch block. Uncertain chronicity. Likely baseline. Likely secondary to epidural abscess as above, however patient does have an incomplete right bundle branch block. Will check troponin. If this is negative , given patient's one-week duration of pain it is unlikely cardiac in nature. = 04/17. Troponin negative at less than 0.02. Leukocytosis of 11.8. Likely secondary to infection from epidural abscess. Vitals otherwise stable. Continue to monitor. = 04/17. Follow-up labs from this morning. Tobacco abuse. Cessation counseling provided. IV drug use. Heroin abuse Cessation counseling provided. Discharge Planning: Pending improvement and neurosurgery and ID clearance. Anticipate surgical intervention on 04/20/2018 if cultures remain negative. Dr Mcnally neurosurgery ff. Assessment and Plan - Plan Impression: 1. Findings consistent with C6-7 discitis, osteomyelitis. There is a small area of fluid at the region of inflammation and probable disc displacement at the C6-7 level but this is well contained by the posterior longitudinal ligament with no definite focal abscess in the epidural space itself. The findings on the MRI as well as the patient's history would indicate that this is likely a subacute process, likely starting approximately 4 weeks ago with onset of his severe neck pain, with the more recent symptoms in the past week likely indicating left C7 radiculopathy related to collapse of the disc space and subluxation with left C7 nerve impingement. There may be some inflammation around the exiting left C7 nerve root. No indication of spinal cord compression or abnormal signal intensity within the cord. Recommendations: Discussed patient with infectious disease today. Cultures negative so far. Given that this looks like a subacute process, and there is no evidence of gross epidural abscess, it would be reasonable to hold antibiotics initially pending the results of the blood cultures. The potential need for surgical intervention has been previously discussed with the patient. If blood cultures are positive, and depending on infectious disease recommendations, it may be possible to initially treat this conservatively with close follow-up of his imaging studies. If he develops a focal left C7 deficit or continues to have significant pain despite treatment or develops progressive disease on serial imaging studies, then surgical intervention may be required. If initial cultures are negative and tissue is needed for diagnosis, or any progressive radicular symptoms or deficit appear, then surgical intervention may be undertaken. At this point anticipate that he will need to go for surgical intervention on 04/20/2018 if cultures remain negative.
--- NOTE | 2018-04-20 09:15 | P.PN ---
Physical Exam Vital signs: Vital Signs 04/19/18 12:00 04/19/18 16:00 04/19/18 20:00 Temperature 97.9 F 97.8 F 97.6 F Pulse Rate 101 H 70 60 Respiratory Rate 20 20 18 Blood Pressure 137/75 120/58 L 121/58 L Pulse Oximetry 100 97 98 04/20/18 00:00 04/20/18 04:00 04/20/18 08:00 Temperature 97.9 F 98.6 F 97.8 F Pulse Rate 70 95 H 74 Respiratory Rate 18 18 18 Blood Pressure 114/67 105/64 104/53 L Pulse Oximetry 96 95 97 Intake & Output 04/19/18 04/20/18 04/20/18 18:59 06:59 18:59 Weight 75.9 kg Other: # Voids 1 Narrative: Subjective Interval history: F/o suspected spinal osteomyelitis in IVDU - heroin user Numbness in his left hand and mild pain in his neck/ shoulder about the same. No new motor or sensory deficit. Ambulating without any problems. No fever or chills. no n/v/d/c. Eating well. Physical Exam GENERAL: Patient is a young male, appears in nad. CARDIOVASCULAR: Regular rate and rhythm without murmurs, gallops, or rubs. RESPIRATORY: Breath sounds equal bilaterally. No accessory muscle use. GASTROINTESTINAL: Abdomen soft, non-tender, nondistended. MUSCULOSKELETAL: No cyanosis, or edema. BACK: Nontender without obvious deformity. No CVA tenderness. NEURO: Paresthesia left arm. Assessment and Plan Young 23 yo male Suspected spinal osteomyelitis. Left upper extremity paresthesias -Likely secondary to IV drug use. = With outside MRI positive for epidural abscess Neurosurgery consulted. Appreciate assistance. = ESR 71, white blood cell count 11.8. Vitals within normal limits. = Await neurosurgery recommendations. Likely will need biopsy for cultures. Then can start antibiotics = Plan to consult infectious disease in the morning when cultures are obtained. Hold off on antibiotics. Follow-up blood cultures. Consult infectious disease. Poss IR intervention CT guided biopsy on 04/20/18 since patient does not have significant canal or foraminal stenosis to necessitate discectomy and fusion per Dr Angel neurosurgery Left shoulder pain. Right bundle branch block. Uncertain chronicity. Likely baseline. Likely secondary to epidural abscess as above, however patient does have an incomplete right bundle branch block. Will check troponin. If this is negative , given patient's one-week duration of pain it is unlikely cardiac in nature. = 04/17. Troponin negative at less than 0.02. Leukocytosis of 11.8. Likely secondary to infection from epidural abscess. Vitals otherwise stable. Continue to monitor. = 04/17. Follow-up labs from this morning. Tobacco abuse. Cessation counseling provided. IV drug use. Heroin abuse Cessation counseling provided. Discharge Planning: Pending improvement and neurosurgery and ID clearance. Anticipate IR intervention on 04/20/2018 if cultures remain negative ; CT guided biopsy on 04/20/18 since patient does not have significant canal or foraminal stenosis to necessitate discectomy and fusion per Dr Angel neurosurgery Results - Labs CBC & Chem 7: 04/17/18 07:57 04/17/18 07:57 Microbiology 04/16/18 18:27 Blood - Peripheral Aerobic Blood Culture - Preliminary No growth in 3 days 04/16/18 18:27 Blood - Peripheral Anaerobic Blood Culture - Preliminary No growth in 2 days 04/16/18 18:27 Blood - Peripheral Aerobic Blood Culture - Preliminary No growth in 3 days 04/16/18 18:27 Blood - Peripheral Anaerobic Blood Culture - Preliminary No growth in 3 days
--- NOTE | 2018-04-20 20:18 | P.PNNS ---
Physical Exam Vital signs: Vital Signs 04/20/18 00:00 04/20/18 04:00 04/20/18 08:00 Temperature 97.9 F 98.6 F 97.8 F Pulse Rate 70 95 H 74 Respiratory Rate 18 18 18 Blood Pressure 114/67 105/64 104/53 L Pulse Oximetry 96 95 97 04/20/18 12:00 04/20/18 16:00 Temperature 97.9 F 98.0 F Pulse Rate 77 93 H Respiratory Rate 18 18 Blood Pressure 116/58 L 126/66 Pulse Oximetry 96 97 Intake & Output 04/20/18 04/20/18 04/21/18 06:59 18:59 06:59 Weight 75.9 kg Other: # Voids 1 3 Assessment and Plan - Plan Impression: 1. Findings consistent with C6-7 discitis, osteomyelitis. There is a small area of fluid at the region of inflammation and probable disc displacement at the C6-7 level but this is well contained by the posterior longitudinal ligament with no definite focal abscess in the epidural space itself. The findings on the MRI as well as the patient's history would indicate that this is likely a subacute process, likely starting approximately 4 weeks ago with onset of his severe neck pain, with the more recent symptoms in the past week likely indicating left C7 radiculopathy related to collapse of the disc space and subluxation with left C7 nerve impingement. There may be some inflammation around the exiting left C7 nerve root. No indication of spinal cord compression or abnormal signal intensity within the cord. Recommendations: Discussed patient with infectious disease today. Cultures negative so far. Discussed with IR They will do CT guided biopsy on 04/20/18 since patient does not have significant canal or foraminal stenosis to necessitate discectomy and fusion.
[2018-04-21] MEDS ORDERED: Chlorhexidine Gluconate 2% 1 Pack (2 Cloths) TOPICAL SCH (04:45)
[2018-04-21] MEDS ORDERED: Metoprolol Tartrate 25 MG Tablet PO SCH (04:45)
[2018-04-21] MEDS ORDERED: Sodium Chlor 0.9% Inj 500 ML IV.SIG SCH (05:00)
[2018-04-21] MEDS ORDERED: Lidocaine 1%/Epinephrine 1:100,000 Inj 20 ML Vial ONE (13:39)
[2018-04-21] MEDS ORDERED: fentaNYL Citrate Inj 250 MCG/5 ML Ampul ONE ×2 (13:44→14:01)
--- NOTE | 2018-04-21 14:23 | P.RAD ---
Post Procedure Progress Note - Pre Procedure Diagnosis (1) Abscess in epidural space of cervical spine - Post Procedure Diagnosis (1) Abscess in epidural space of cervical spine - Procedure Information Procedure Date: 04/21/18 Supervising Radiologist: Rick Mayes MD Estimated blood loss (mL): 0 Anesthesia: Local, Analgesia, Conscious Sedation - Plan of Activity Patient to Unit: [facility] Patient Condition: Good See PACS Report for procedural detail/treatment. Biopsy CT right Other Specimen: Fine Needle Aspirate Fluid Description: Bloody Findings: 22 gauge FNA c6-7 disc Treatment Area: c6-7 disc
--- NOTE | 2018-04-21 16:29 | CT ---
EXAM DATE: 04/21/2018 2:52 PM EDT AGE/SEX: 23 years / Male INDICATIONS: Cervical discitis. CLINICAL DATA: This is the patient's initial encounter. Patient reports that signs and symptoms have been present for 1 day and indicates a pain score of 0/10. MEDICAL/SURGICAL HISTORY: None. None. COMPARISON: No prior exams available for comparison. BIOPSY SITE: cervical disc c6-c7 MEDICATION(S): 8mg midazolam (Versed) IV 400mcg fentanyl (Sublimaze) IV DEVICE(S): 22 gauge Chiba needle FLUID: Total volume of 2 of fluid was removed. . . . PROCEDURE : CT guided FNA of the cervical disc c6-c7. The risks, benefits and alternatives to the procedure were explained and verbal and written consent w as obtained. Using automated exposure control and adjustment of the mA and/or kV according to patient size, radiation dose was kept as low as reasonably achievable to obtain optimal diagnostic quality i mages. The site was prepped in sterile fashion. Full sterile technique was used, including cap, ma sk, sterile gloves and gown and a large sterile sheet. Hand hygiene and 2% chlorhexidine and/or beta dine/alcohol prep was utilized per protocol for cutaneous antisepsis. The skin and subcutaneous tiss ues were infiltrated with local anesthetic solution. DICOM format image data is available electronic ally for review and comparison. FINDINGS: Using CT guidance the prescribed site was localized. 22-gauge Chiba needle was advanced into the abno rmal C6-7 disc. FNA was performed. The patient tolerated the procedure well and there were no complications. The patient tolerated the procedure well and there were no complications. The patient was sent to post anesthesia recovery in s table condition. CONCLUSION: 1. Uncomplicated CT guided FNA of the C6-7 disc. Electronically signed by: Rick Mayes MD 04/21/2018 4:28 PM EDT
--- NOTE | 2018-04-21 17:18 | P.PN ---
Physical Exam Vital signs: Vital Signs 04/20/18 20:00 04/21/18 00:00 04/21/18 04:00 Temperature 99 F 97.8 F 97.4 F L Pulse Rate 92 H 100 H 89 Respiratory Rate 16 16 16 Blood Pressure 120/54 L 97/55 L 118/56 L Pulse Oximetry 97 95 04/21/18 08:00 04/21/18 12:00 04/21/18 14:30 Temperature 98.1 F 98 F 97.9 F Pulse Rate 87 86 96 H Respiratory Rate 12 14 18 Blood Pressure 104/62 111/70 91/54 L Pulse Oximetry 98 99 97 04/21/18 14:45 04/21/18 15:00 04/21/18 16:00 Temperature 98.2 F Pulse Rate 85 78 88 Respiratory Rate 18 18 13 Blood Pressure 106/58 L 108/65 105/70 Pulse Oximetry 96 98 98 Intake & Output 04/20/18 04/21/18 04/21/18 18:59 06:59 18:59 Intake Total 0 / 0 Balance 0 / 0 Weight 75.9 kg Intake: Oral 0 / 0 Other: # Voids 3 1 Narrative: Subjective Interval history: F/o suspected spinal osteomyelitis in IVDU - heroin user Awaiting to go for fine-needle aspiration today Numbness in his left hand and mild pain in his neck/ shoulder about the same. No new motor or sensory deficit. Ambulating without any problems. No fever or chills. no n/v/d/c. Eating well. Physical Exam GENERAL: Patient is a young male, appears in nad. CARDIOVASCULAR: Regular rate and rhythm without murmurs, gallops, or rubs. RESPIRATORY: Breath sounds equal bilaterally. No accessory muscle use. GASTROINTESTINAL: Abdomen soft, non-tender, nondistended. MUSCULOSKELETAL: No cyanosis, or edema. BACK: Nontender without obvious deformity. No CVA tenderness. NEURO: Paresthesia left arm. Assessment and Plan Young 23 yo male Suspected spinal osteomyelitis. Left upper extremity paresthesias -Likely secondary to IV drug use. = With outside MRI positive for epidural abscess Neurosurgery consulted. Appreciate assistance. = ESR 71, white blood cell count 11.8. Vitals within normal limits. = Await neurosurgery recommendations. Likely will need biopsy for cultures. Then can start antibiotics = Plan to consult infectious disease in the morning when cultures are obtained. Hold off on antibiotics. Follow-up blood cultures. Consult infectious disease. Poss IR intervention CT guided biopsy on 04/20/18 since patient does not have significant canal or foraminal stenosis to necessitate discectomy and fusion per Dr Angel neurosurgery Left shoulder pain. Right bundle branch block. Uncertain chronicity. Likely baseline. Likely secondary to epidural abscess as above, however patient does have an incomplete right bundle branch block. Will check troponin. If this is negative , given patient's one-week duration of pain it is unlikely cardiac in nature. = 04/17. Troponin negative at less than 0.02. Leukocytosis of 11.8. Likely secondary to infection from epidural abscess. Vitals otherwise stable. Continue to monitor. = 04/17. Follow-up labs from this morning. Tobacco abuse. Cessation counseling provided. IV drug use. Heroin abuse Cessation counseling provided. Discharge Planning: Pending improvement and neurosurgery and ID clearance. Anticipate IR intervention on 04/20/2018 if cultures remain negative ; s/p CT guided biopsy on 04/21/18 since patient does not have significant canal or foraminal stenosis to necessitate discectomy and fusion per Dr Angel neurosurgery Discharge plan: discharge home when cleared by infectious disease and neurosurgery Results - Labs CBC & Chem 7: 04/17/18 07:57 04/17/18 07:57 Microbiology 04/16/18 18:27 Blood - Peripheral Aerobic Blood Culture - Final No growth in 5 days 04/16/18 18:27 Blood - Peripheral Anaerobic Blood Culture - Final No growth in 5 days 04/16/18 18:27 Blood - Peripheral Aerobic Blood Culture - Final No growth in 5 days 04/16/18 18:27 Blood - Peripheral Anaerobic Blood Culture - Final No growth in 5 days - Imaging Impressions Needle Aspiration CT 04/21/18 00:00 CONCLUSION: 1. Uncomplicated CT guided FNA of the C6-7 disc.
--- NOTE | 2018-04-21 17:24 | P.DS ---
Date of admission: 04/16/18 18:56 Primary care physician: UNKNOWN Brief History from admission: 23-year-old male with a history of IV heroin abuse who presents with one-week history of constant sharp posterior neck pain, constant left shoulder pain radiating to left arm, with associated left hand paresthesias. Patient denies any fevers, chills, chest pain, shortness of breath, nausea, vomiting, lightheadedness, dizziness, dysuria, diarrhea, constipation. DS: Summary Hospital Course: GENERAL: Patient is a young male, appears in nad. CARDIOVASCULAR: Regular rate and rhythm without murmurs, gallops, or rubs. RESPIRATORY: Breath sounds equal bilaterally. No accessory muscle use. GASTROINTESTINAL: Abdomen soft, non-tender, nondistended. MUSCULOSKELETAL: No cyanosis, or edema. BACK: Nontender without obvious deformity. No CVA tenderness. NEURO: Paresthesia left arm. Assessment and Plan Young 23 yo male Suspected spinal osteomyelitis. Left upper extremity paresthesias -Likely secondary to IV drug use. = With outside MRI positive for epidural abscess Neurosurgery consulted. Appreciate assistance. = ESR 71, white blood cell count 11.8. Vitals within normal limits. = Await neurosurgery recommendations. Likely will need biopsy for cultures. Then can start antibiotics = Plan to consult infectious disease in the morning when cultures are obtained. Hold off on antibiotics. Follow-up blood cultures. Consult infectious disease. Poss IR intervention CT guided biopsy on 04/20/18 since patient does not have significant canal or foraminal stenosis to necessitate discectomy and fusion per Dr Angel neurosurgery Left shoulder pain. Right bundle branch block. Uncertain chronicity. Likely baseline. Likely secondary to epidural abscess as above, however patient does have an incomplete right bundle branch block. Will check troponin. If this is negative , given patient's one-week duration of pain it is unlikely cardiac in nature. = 04/17. Troponin negative at less than 0.02. Leukocytosis of 11.8. Likely secondary to infection from epidural abscess. Vitals otherwise stable. Continue to monitor. = 04/17. Follow-up labs from this morning. Tobacco abuse. Cessation counseling provided. IV drug use. Heroin abuse Cessation counseling provided. Discharge Planning: Pending improvement and neurosurgery and ID clearance. Patient does not have significant canal or foraminal stenosis to necessitate discectomy and fusion per Dr Angel neurosurgery s/p CT guided biopsy on 04/21/18 by IR Patient LEFT AMA after the intervention - Time Spent with Patient Total time spent providing and/or coordinating discharge services: Greater than 30 minutes - Quality: VTE Deep Vein Thrombosis/Pulmonary Embolism Present on Admission: No Exam Vital signs: Vital Signs 04/20/18 20:00 04/21/18 00:00 04/21/18 04:00 Temperature 99 F 97.8 F 97.4 F L Pulse Rate 92 H 100 H 89 Respiratory Rate 16 16 16 Blood Pressure 120/54 L 97/55 L 118/56 L Pulse Oximetry 97 95 04/21/18 08:00 04/21/18 12:00 04/21/18 14:30 Temperature 98.1 F 98 F 97.9 F Pulse Rate 87 86 96 H Respiratory Rate 12 14 18 Blood Pressure 104/62 111/70 91/54 L Pulse Oximetry 98 99 97 04/21/18 14:45 04/21/18 15:00 04/21/18 16:00 Temperature 98.2 F Pulse Rate 85 78 88 Respiratory Rate 18 18 13 Blood Pressure 106/58 L 108/65 105/70 Pulse Oximetry 96 98 98 Intake & Output 04/20/18 04/21/18 04/21/18 18:59 06:59 18:59 Intake Total 0 / 0 Balance 0 / 0 Weight 75.9 kg Intake: Oral 0 / 0 Other: # Voids 3 1 Results Procedures completed during hospitalization: s/p CT guided biopsy on 04/21/18 by IR - Impressions ITS Impressions Chest X-Ray 04/16/18 17:41 CONCLUSION: No active disease. Needle Aspiration CT 04/21/18 00:00 CONCLUSION: 1. Uncomplicated CT guided FNA of the C6-7 disc. Discharge Plan - Discharge Disposition Patient Disposition: Left Against Medical Advice - Discharge Condition Condition: Stable - Discharge Order Discharge Orders: AMA Discharge (Routine); Ordered 04/21/18 Ordered By: Beba Murphy - Discharge Details Anticipated Discharge Date: 04/21/18 - Physicians Team Primary Care Provider: UNKNOWN, Attending Provider: Beba Murphy Other Providers: Selina Grace MD ; David Angel MD
[2018-04-21] MEDS ORDERED: Zolpidem Tartrate 5 MG Tablet PO PRN (18:05)
--- NOTE | 2018-04-21 18:12 | P.PNNS ---
Subjective Interval history: Biopsy today C5-6. Aching left shoulder and pectoral region for past week Physical Exam Vital signs: Vital Signs 04/20/18 20:00 04/21/18 00:00 04/21/18 04:00 Temperature 99 F 97.8 F 97.4 F L Pulse Rate 92 H 100 H 89 Respiratory Rate 16 16 16 Blood Pressure 120/54 L 97/55 L 118/56 L Pulse Oximetry 97 95 04/21/18 08:00 04/21/18 12:00 04/21/18 14:30 Temperature 98.1 F 98 F 97.9 F Pulse Rate 87 86 96 H Respiratory Rate 12 14 18 Blood Pressure 104/62 111/70 91/54 L Pulse Oximetry 98 99 97 04/21/18 14:45 04/21/18 15:00 04/21/18 16:00 Temperature 98.2 F Pulse Rate 85 78 88 Respiratory Rate 18 18 13 Blood Pressure 106/58 L 108/65 105/70 Pulse Oximetry 96 98 98 Intake & Output 04/20/18 04/21/18 04/21/18 18:59 06:59 18:59 Intake Total 0 / 0 Balance 0 / 0 Weight 75.9 kg Intake: Oral 0 / 0 Other: # Voids 3 1 Assessment and Plan - Plan Impression: 1. Findings consistent with C6-7 discitis, osteomyelitis. There is a small area of fluid at the region of inflammation and probable disc displacement at the C6-7 level but this is well contained by the posterior longitudinal ligament with no definite focal abscess in the epidural space itself. The findings on the MRI as well as the patient's history would indicate that this is likely a subacute process, likely starting approximately 4 weeks ago with onset of his severe neck pain, with the more recent symptoms in the past week likely indicating left C7 radiculopathy related to collapse of the disc space and subluxation with left C7 nerve impingement. There may be some inflammation around the exiting left C7 nerve root. No indication of spinal cord compression or abnormal signal intensity within the cord. Recommendations: Discussed patient with infectious disease today. Cultures negative so far. CT Bx today. May need ACDF if Bx non diagnostic or persistent Left UE pain or deficit
--- NOTE | 2018-04-22 09:13 | P.PN ---
Physical Exam Vital signs: Vital Signs 04/21/18 12:00 04/21/18 14:30 04/21/18 14:45 Temperature 98 F 97.9 F Pulse Rate 86 96 H 85 Respiratory Rate 14 18 18 Blood Pressure 111/70 91/54 L 106/58 L Pulse Oximetry 99 97 96 04/21/18 15:00 04/21/18 16:00 04/21/18 20:00 Temperature 98.2 F 98.4 F Pulse Rate 78 88 89 Respiratory Rate 18 13 18 Blood Pressure 108/65 105/70 104/54 L Pulse Oximetry 98 98 100 04/22/18 01:47 04/22/18 07:26 Temperature 98.2 F 98.2 F Pulse Rate 78 73 Respiratory Rate 18 18 Blood Pressure 103/56 L 117/60 Pulse Oximetry 100 100 Intake & Output 04/21/18 04/22/18 04/22/18 18:59 06:59 18:59 Weight 75.2 kg Other: # Voids 2 4 # Bowel Movements 1 Narrative: Subjective Interval history: F/o suspected spinal osteomyelitis in IVDU - heroin user S/p fine-needle aspiration yesterday. Patient says he can't sleep at night Numbness in his left hand and mild pain in his neck/ shoulder about the same. No new motor or sensory deficit. Ambulating without any problems. No fever or chills. no n/v/d/c. Eating well. Physical Exam GENERAL: Patient is a young male, appears in nad. CARDIOVASCULAR: Regular rate and rhythm without murmurs, gallops, or rubs. RESPIRATORY: Breath sounds equal bilaterally. No accessory muscle use. GASTROINTESTINAL: Abdomen soft, non-tender, nondistended. MUSCULOSKELETAL: No cyanosis, or edema. BACK: Nontender without obvious deformity. No CVA tenderness. NEURO: Paresthesia left arm. Assessment and Plan Young 23 yo male Suspected spinal osteomyelitis. Left upper extremity paresthesias -Likely secondary to IV drug use. = With outside MRI positive for epidural abscess Neurosurgery consulted. Appreciate assistance. = ESR 71, white blood cell count 11.8. Vitals within normal limits. = Await neurosurgery recommendations. Likely will need biopsy for cultures. Then can start antibiotics = Plan to consult infectious disease in the morning when cultures are obtained. Hold off on antibiotics. Follow-up blood cultures. Consult infectious disease. Poss IR intervention CT guided biopsy on 04/20/18 since patient does not have significant canal or foraminal stenosis to necessitate discectomy and fusion per Dr Angel neurosurgery Left shoulder pain. Right bundle branch block. Uncertain chronicity. Likely baseline. Likely secondary to epidural abscess as above, however patient does have an incomplete right bundle branch block. Will check troponin. If this is negative , given patient's one-week duration of pain it is unlikely cardiac in nature. = 04/17. Troponin negative at less than 0.02. Leukocytosis of 11.8. Likely secondary to infection from epidural abscess. Vitals otherwise stable. Continue to monitor. = 04/17. Follow-up labs from this morning. Tobacco abuse. Cessation counseling provided. IV drug use. Heroin abuse Cessation counseling provided. Insomnia: sleeping aid Discharge Planning: Pending improvement and neurosurgery and ID clearance. s/p CT guided biopsy on 04/21/18 Discharge plan: discharge home when cleared by infectious disease and neurosurgery Results - Labs CBC & Chem 7: 04/17/18 07:57 04/17/18 07:57 Microbiology 04/21/18 14:15 Fluid - Other Fungal Smear - Final No fungal elements seen 04/21/18 14:15 Fluid - Other Gram Stain - Final 04/16/18 18:27 Blood - Peripheral Aerobic Blood Culture - Final No growth in 5 days 04/16/18 18:27 Blood - Peripheral Anaerobic Blood Culture - Final No growth in 5 days 04/16/18 18:27 Blood - Peripheral Aerobic Blood Culture - Final No growth in 5 days 04/16/18 18:27 Blood - Peripheral Anaerobic Blood Culture - Final No growth in 5 days - Imaging Impressions Needle Aspiration CT 04/21/18 00:00 CONCLUSION: 1. Uncomplicated CT guided FNA of the C6-7 disc. - Procedures s/p CT guided biopsy on 04/21/18 by MADIE
--- NOTE | 2018-04-23 08:15 | P.PN ---
Physical Exam Vital signs: Vital Signs 04/22/18 12:00 04/22/18 17:53 04/23/18 00:00 Temperature 97.9 F 97.5 F L 98.2 F Pulse Rate 110 H 80 80 Respiratory Rate 16 16 18 Blood Pressure 143/66 H 130/70 117/57 L Pulse Oximetry 94 L 95 98 04/23/18 00:01 04/23/18 07:16 Temperature 98.9 F 98.3 F Pulse Rate 93 H 80 Respiratory Rate 18 18 Blood Pressure 135/74 97/49 L Pulse Oximetry 100 96 Intake & Output 04/22/18 04/23/18 04/23/18 18:59 06:59 18:59 Intake Total 900 / 900 200 / 200 Balance 900 / 900 200 / 200 Weight 75.2 kg 98.3 kg Intake: IV 200 / 200 Maxipime Inj 2,000 MG In NS Inj 200 / 200 100 ML @ 200 mls/hr IV.SIG Q8H GUIDO Rx#:[id number] Oral 900 / 900 Other: # Voids 8 3 4 # Bowel Movements 3 Weight On Admission 80 kg Narrative: Subjective Interval history: F/o suspected spinal osteomyelitis in IVDU - heroin user S/p fine-needle aspiration Awaiting results Numbness in his left hand and mild pain in his neck/ shoulder about the same. No new motor or sensory deficit. Ambulating without any problems. No fever or chills. No n/v/d/c. Eating well. Physical Exam GENERAL: Patient is a young male, appears in nad. CARDIOVASCULAR: Regular rate and rhythm without murmurs, gallops, or rubs. RESPIRATORY: Breath sounds equal bilaterally. No accessory muscle use. GASTROINTESTINAL: Abdomen soft, non-tender, nondistended. MUSCULOSKELETAL: No cyanosis, or edema. BACK: Nontender without obvious deformity. No CVA tenderness. NEURO: Paresthesia left arm. Assessment and Plan Young 23 yo male Suspected spinal osteomyelitis. Left upper extremity paresthesias -Likely secondary to IV drug use. = With outside MRI positive for epidural abscess Neurosurgery consulted. Appreciate assistance. = ESR 71, white blood cell count 11.8. Vitals within normal limits. = Await neurosurgery recommendations. Likely will need biopsy for cultures. Then can start antibiotics = Plan to consult infectious disease in the morning when cultures are obtained. Hold off on antibiotics. Follow-up blood cultures. Consult infectious disease. Poss IR intervention CT guided biopsy on 04/20/18 since patient does not have significant canal or foraminal stenosis to necessitate discectomy and fusion per Dr Angel neurosurgery Left shoulder pain. Right bundle branch block. Uncertain chronicity. Likely baseline. Likely secondary to epidural abscess as above, however patient does have an incomplete right bundle branch block. Will check troponin. If this is negative , given patient's one-week duration of pain it is unlikely cardiac in nature. = 04/17. Troponin negative at less than 0.02. Leukocytosis of 11.8. Likely secondary to infection from epidural abscess. Vitals otherwise stable. Continue to monitor. = 04/17. Follow-up labs from this morning. Tobacco abuse. Cessation counseling provided. IV drug use. Heroin abuse Cessation counseling provided. Insomnia: sleeping aid Discharge Planning: Pending improvement and neurosurgery and ID clearance. s/p CT guided biopsy on 04/21/18 awaiting results Discharge plan: discharge home when cleared by infectious disease and neurosurgery Results - Labs CBC & Chem 7: 04/17/18 07:57 04/17/18 07:57 Microbiology 04/21/18 14:15 Fluid - Other Gram Stain - Final 04/21/18 14:15 Fluid - Other Body Fluid Culture - Preliminary gram negative rods 04/21/18 14:15 Fluid - Other Fungal Smear - Final No fungal elements seen - Procedures s/p CT guided biopsy on 04/21/18 by IR
--- NOTE | 2018-04-23 18:59 | P.PNNS ---
Subjective Interval history: Pt awake and alert sitting in chair. States he has mild discomfort in left lateral upper arm. Paresthesias in 1-3 fingers on left. Physical Exam Vital signs: Vital Signs 04/23/18 00:00 04/23/18 00:01 04/23/18 07:16 Temperature 98.2 F 98.9 F 98.3 F Pulse Rate 80 93 H 80 Respiratory Rate 18 18 18 Blood Pressure 117/57 L 135/74 97/49 L Pulse Oximetry 98 100 96 04/23/18 08:08 04/23/18 12:15 04/23/18 16:23 Temperature 97.9 F 98 F 98 F Pulse Rate 70 69 79 Respiratory Rate 20 20 20 Blood Pressure 95/51 L 100/52 L 113/57 L Pulse Oximetry 98 97 97 Intake & Output 04/22/18 04/23/18 04/23/18 18:59 06:59 18:59 Intake Total 900 / 900 200 / 200 580 / 580 Output Total 3 / 3 Balance 900 / 900 200 / 200 577 / 577 Weight 75.2 kg 98.3 kg Intake: IV 200 / 200 100 / 100 Maxipime Inj 2,000 MG In NS Inj 200 / 200 100 / 100 100 ML @ 200 mls/hr IV.SIG Q8H GUIDO Rx#:[id number] Oral 900 / 900 480 / 480 Output: Urine 3 / 3 Other: # Voids 8 3 4 # Bowel Movements 3 Weight On Admission 80 kg - Constitutional no acute distress, thin, cooperative - Routine HEENT Exam Head: Present: normocephalic, atraumatic Eye: Present: PERRL (Pupils 3mm bilaterally reactive bilaterally.). Absent: conjunctival icterus - Routine Neck Exam Present: trachea midline - Routine Respiratory Exam Present: CTA bilaterally. Absent: respiratory distress, rhonchi, wheezes - Routine Cardiovascular Exam Present: RRR, S1, S2. Absent: murmur - Routine Abdominal Exam Present: soft, normoactive bowel sounds. Absent: distended - Routine Skin Exam Absent: cyanosis, erythema - Routine Neurological Exam Present: alert, oriented X3, sensory deficit (Decreased in left 1-3 fingers.), motor deficit (Mild 4/5 left triceps weakness otherwise 5/5 strength in UEs. No weakness in LEs.), moving all extremities, normal speech - Detailed Neurological Exam: Coma Scale Eye Opening: Spontaneous Verbal Response: Oriented Motor Response: Obey commands Melinda Coma Scale Total: 15 - Routine Psychiatric Exam Present: normal affect, cooperative. Absent: anxious, agitated Assessment and Plan - Assessment (1) Acute osteomyelitis of cervical spine Code(s): M46.22 - Osteomyelitis of vertebra, cervical region Status: Acute - Plan Impression: 1. Findings consistent with C6-7 discitis, osteomyelitis. There is a small area of fluid at the region of inflammation and probable disc displacement at the C6-7 level but this is well contained by the posterior longitudinal ligament with no definite focal abscess in the epidural space itself. The findings on the MRI as well as the patient's history would indicate that this is likely a subacute process, likely starting approximately 4 weeks ago with onset of his severe neck pain, with the more recent symptoms in the past week likely indicating left C7 radiculopathy related to collapse of the disc space and subluxation with left C7 nerve impingement. There may be some inflammation around the exiting left C7 nerve root. No indication of spinal cord compression or abnormal signal intensity within the cord. biopsy grew serratia Recommendations: Continue with antibiotics Continue to monitor progress. Further plan per ID recommendations.
--- NOTE | 2018-04-24 09:42 | P.PN ---
Physical Exam Vital signs: Vital Signs 04/23/18 12:15 04/23/18 16:23 04/23/18 20:00 Temperature 98 F 98 F 98.6 F Pulse Rate 69 79 83 Respiratory Rate 20 20 18 Blood Pressure 100/52 L 113/57 L 127/61 Pulse Oximetry 97 97 100 04/24/18 04:00 04/24/18 09:10 Temperature 98.2 F 98.0 F Pulse Rate 73 72 Respiratory Rate 18 16 Blood Pressure 114/55 L 107/70 Pulse Oximetry 99 98 Intake & Output 04/23/18 04/24/18 04/24/18 18:59 06:59 18:59 Intake Total 580 / 580 680 / 680 Output Total 3 / 3 Balance 577 / 577 680 / 680 Weight 98.3 kg 78.1 kg Intake: IV 100 / 100 200 / 200 Maxipime Inj 2,000 MG In NS Inj 100 / 100 200 / 200 100 ML @ 200 mls/hr IV.SIG Q8H GUIDO Rx#:[id number] Oral 480 / 480 480 / 480 Output: Urine 3 / 3 Other: # Voids 4 Date of Last Bowel Movement 04/23/18 Weight On Admission 80 kg Narrative: Subjective Interval history: F/o suspected spinal osteomyelitis in IVDU - heroin user S/p fine-needle aspiration, growing Seratia, on cefepime IV abx per ID Numbness in his left hand and mild pain in his neck/ shoulder improving some. No new motor or sensory deficit. Ambulating without any problems. No fever or chills. No n/v/d/c. Eating well. Physical Exam GENERAL: Patient is a young male, appears in nad. CARDIOVASCULAR: Regular rate and rhythm without murmurs, gallops, or rubs. RESPIRATORY: Breath sounds equal bilaterally. No accessory muscle use. GASTROINTESTINAL: Abdomen soft, non-tender, nondistended. MUSCULOSKELETAL: No cyanosis, or edema. BACK: Nontender without obvious deformity. No CVA tenderness. NEURO: Paresthesia left arm improving. 4+/5 left triceps strength, all other 5/ 5 strength, ambulating. Assessment and Plan Mr. Rojas is a 23 y/o male with C6/7 osteomyelitis/discitis. MRI demonstrates destruction of the inferior endplate of C6 and the superior endplate of C7 with a small, non-compressive ventral epidural abscess at this level. Left C7 paresthesias and radicular pain limited triceps weakness are likely nerve root irritation. There is no evidence of compression of the exiting left C7 nerve root. CT guided biopsy demonstrated serratia. He is being treated with IV antibiotics, ID following. Per neurosurgery he may develop a kyphotic deformity at C6/7 necessitating spinal surgery in the future. Given that he is without compression of the neural elements with only pain limited triceps weakness and paresthesias, surgical intervention (which would involve instrumentation) is not indicated at this time given his ongoing infection. Neurosurgery recommends cervical collar to promote improved cervical alignment and auto-fusion of the C6/7 vertebral bodies, decreasing the probability of the need for surgery in the future. Spinal osteomyelitis . S/p fine-needle aspiration, growing Seratia, on cefepime IV abx per ID Left upper extremity paresthesias H/o IVDU -Likely secondary to IV drug use. - With outside MRI positive for epidural abscess Neurosurgery consulted. Appreciate assistance. - ESR 71, white blood cell count 11.8. Vitals within normal limits. - Await neurosurgery recommendations. Likely will need biopsy for cultures. Then can start antibiotics - Consult infectious disease, ff . S/p fine-needle aspiration, growing Seratia , on cefepime IV abx per ID - Jeanne neurosurgery ff - [place] cervical collar - Continue to monitor progress. Left shoulder pain. Right bundle branch block. Uncertain chronicity. Likely baseline. Likely secondary to epidural abscess as above, however patient does have an incomplete right bundle branch block. Will check troponin. If this is negative , given patient's one-week duration of pain it is unlikely cardiac in nature. = 8. Troponin negative at less than 0.02. Leukocytosis of 11.8. Likely secondary to infection from epidural abscess. Vitals otherwise stable. Continue to monitor. = 8/3. Follow-up labs from this morning. Tobacco abuse. Cessation counseling provided. IV drug use. Heroin abuse Cessation counseling provided. Insomnia: sleeping aid Discharge Planning: Pending improvement and neurosurgery and ID clearance. s/p CT guided biopsy on 04/21/18 awaiting results Discharge plan: discharge home when cleared by infectious disease and neurosurgery. No plan for surgical intervention patient with [place] J collar. Currently on IV abx cefepime. Results - Labs CBC & Chem 7: 04/17/18 07:57 04/17/18 07:57 Microbiology 04/21/18 14:15 Fluid - Other Acid Fast Bacilli Smear - Final No acid fast bacilli seen 04/21/18 14:15 Fluid - Other Gram Stain - Final 04/21/18 14:15 Fluid - Other Body Fluid Culture - Final Serratia marcescens - Procedures s/p CT guided biopsy on 04/21/18 by IR
--- NOTE | 2018-04-24 16:32 | P.PNNS ---
Subjective Interval history: Left upper extremity paresthesias improving. Physical Exam Vital signs: Vital Signs 04/23/18 20:00 04/24/18 04:00 04/24/18 09:10 Temperature 98.6 F 98.2 F 98.0 F Pulse Rate 83 73 72 Respiratory Rate 18 18 16 Blood Pressure 127/61 114/55 L 107/70 Pulse Oximetry 100 99 98 04/24/18 13:15 Temperature 98.1 F Pulse Rate 88 Respiratory Rate 18 Blood Pressure 104/69 Pulse Oximetry 100 Intake & Output 04/23/18 04/24/18 04/24/18 18:59 06:59 18:59 Intake Total 580 / 580 680 / 680 100 / 100 Output Total 3 / 3 Balance 577 / 577 680 / 680 100 / 100 Weight 98.3 kg 78.1 kg Intake: IV 100 / 100 200 / 200 100 / 100 Maxipime Inj 2,000 MG In NS Inj 100 / 100 200 / 200 100 / 100 100 ML @ 200 mls/hr IV.SIG Q8H GUIDO Rx#:[id number] Oral 480 / 480 480 / 480 Output: Urine 3 / 3 Other: # Voids 4 Date of Last Bowel Movement 04/23/18 Weight On Admission 80 kg Narrative: Opens eyes spontaneously PERRL Alert and oriented x3 Follows commands x4 4+/5 left triceps strength, otherwise 5/5 strength throughout Assessment and Plan - Assessment (1) Acute osteomyelitis of cervical spine Code(s): M46.22 - Osteomyelitis of vertebra, cervical region Status: Acute - Plan Impression: Mr. Rojas is a 23 y/o male with C6/7 osteomyelitis/discitis. MRI demonstrates destruction of the inferior endplate of C6 and the superior endplate of C7 with a small, non-compressive ventral epidural abscess at this level. Left C7 paresthesias and radicular pain limited triceps weakness are likely nerve root irritation. There is no evidence of compression of the exiting left C7 nerve root. CT guided biopsy demonstrated serratia. He is being treated with IV antibiotics. He and I had an extensive discussion today about the natural history of his disease process. We discussed the critical importance of him being compliant with his IV antibiotic regimen. We discussed that he may develop a kyphotic deformity at C6/7 necessitating spinal surgery in the future. Given that he is without compression of the neural elements with only pain limited triceps weakness and paresthesias, surgical intervention (which would involve instrumentation) is not indicated at this time given his ongoing infection. I do recommend a cervical collar to promote improved cervical alignment and auto- fusion of the C6/7 vertebral bodies, decreasing the probability of the need for surgery in the future. Recommendations: Continue with antibiotics per infectious disease recommendations. [place] J cervical collar (ordered). Continue to monitor progress.
[2018-04-25] MEDS: levoFLOXacin 750 MG Tablet PO SCH (08:46)
--- NOTE | 2018-04-25 10:14 | P.PNNS ---
Subjective Interval history: No acute events overnight Physical Exam Vital signs: Vital Signs 04/24/18 13:15 04/24/18 17:03 04/24/18 20:00 Temperature 98.1 F 98.4 F 98.2 F Pulse Rate 88 130 H 97 H Respiratory Rate 18 20 18 Blood Pressure 104/69 136/76 128/64 Pulse Oximetry 100 98 99 04/25/18 04:00 04/25/18 08:00 Temperature 98.2 F 98.2 F Pulse Rate 84 78 Respiratory Rate 18 16 Blood Pressure 111/56 L 105/57 L Pulse Oximetry 97 98 Intake & Output 04/24/18 04/25/18 04/25/18 18:59 06:59 18:59 Intake Total 100 / 100 575 / 575 Output Total 3 / 3 Balance 100 / 100 572 / 572 Intake: IV 100 / 100 100 / 100 Maxipime Inj 2,000 MG In NS Inj 100 / 100 100 / 100 100 ML @ 200 mls/hr IV.SIG Q8H GUIDO Rx#:[id number] Oral 475 / 475 Output: Urine 3 / 3 Other: # Voids 4 Date of Last Bowel Movement 04/23/18 04/23/18 # Bowel Movements 3 Narrative: Opens eyes spontaneously PERRL Alert and oriented x3 Follows commands x4, 5/5 strength throughout Numbness in left C7 distribution, stable Assessment and Plan - Assessment (1) Acute osteomyelitis of cervical spine Code(s): M46.22 - Osteomyelitis of vertebra, cervical region Status: Acute - Plan Impression: Mr. Rojas is a 23 y/o male with C6/7 osteomyelitis/discitis. MRI demonstrates destruction of the inferior endplate of C6 and the superior endplate of C7 with a small, non-compressive ventral epidural abscess at this level. Left C7 paresthesias are likely nerve root irritation. There is no evidence of compression of the exiting left C7 nerve root. CT guided biopsy demonstrated serratia. He is being treated with IV antibiotics. He and I had an extensive discussion on 04/24/18 about the natural history of his disease process. We discussed the critical importance of him being compliant with his IV antibiotic regimen. We discussed that he may develop a kyphotic deformity at C6/7 necessitating spinal surgery in the future. Given that he is without compression of the neural elements with only pain limited triceps weakness and paresthesias, surgical intervention (which would involve instrumentation) is not indicated at this time given his ongoing infection. I do recommend a cervical collar to promote improved cervical alignment and auto- fusion of the C6/7 vertebral bodies, decreasing the probability of the need for surgery in the future. Recommendations: Continue with antibiotics per infectious disease recommendations. Given extent of infection and the consequences of antibiotic failure, would encourage IV antibiotics for enhanced penetration, but ultimately defer to ID colleagues. [place] cervical collar (ordered). Wear while out of bed. No need to wear while in bed. Continue to monitor progress.
--- NOTE | 2018-04-25 11:19 | P.PN ---
Physical Exam Vital signs: Vital Signs 04/24/18 13:15 04/24/18 17:03 04/24/18 20:00 Temperature 98.1 F 98.4 F 98.2 F Pulse Rate 88 130 H 97 H Respiratory Rate 18 20 18 Blood Pressure 104/69 136/76 128/64 Pulse Oximetry 100 98 99 04/25/18 04:00 04/25/18 08:00 Temperature 98.2 F 98.2 F Pulse Rate 84 78 Respiratory Rate 18 16 Blood Pressure 111/56 L 105/57 L Pulse Oximetry 97 98 Intake & Output 04/24/18 04/25/18 04/25/18 18:59 06:59 18:59 Intake Total 100 / 100 575 / 575 Output Total 3 / 3 Balance 100 / 100 572 / 572 Intake: IV 100 / 100 100 / 100 Maxipime Inj 2,000 MG In NS Inj 100 / 100 100 / 100 100 ML @ 200 mls/hr IV.SIG Q8H [facility] Rx#:[id number] Oral 475 / 475 Output: Urine 3 / 3 Other: # Voids 4 Date of Last Bowel Movement 04/23/18 04/23/18 # Bowel Movements 3 Results - Labs CBC & Chem 7: 04/17/18 07:57 04/17/18 07:57 - Procedures s/p CT guided biopsy on 04/21/18 by IR Assessment and Plan - Plan Subjective Interval history: F/o spinal osteomyelitis in IVDU - heroin user active per patient until he came to the hospital S/p fine-needle aspiration, growing Seratia, on cefepime IV abx per ID Numbness in his left hand and mild pain in his neck/ shoulder improving some. No new motor or sensory deficit. Ambulating without any problems. No fever or chills. No n/v/d/c. Eating well. When asked about last use of heroin and drugs he says initially that last use was 2 days ago ..., then patient says was prior to admission, will do urinary drug screen. Physical Exam GENERAL: Patient is a young male, appears in nad. CARDIOVASCULAR: Regular rate and rhythm without murmurs, gallops, or rubs. RESPIRATORY: Breath sounds equal bilaterally. No accessory muscle use. GASTROINTESTINAL: Abdomen soft, non-tender, nondistended. MUSCULOSKELETAL: No cyanosis, or edema. BACK: Nontender without obvious deformity. No CVA tenderness. NEURO: Paresthesia left arm improving. 4+/5 left triceps strength, all other 5/ 5 strength, ambulating. Assessment and Plan Mr. Rojas is a 23 y/o male with C6/7 osteomyelitis/discitis. MRI demonstrates destruction of the inferior endplate of C6 and the superior endplate of C7 with a small, non-compressive ventral epidural abscess at this level. Left C7 paresthesias and radicular pain limited triceps weakness are likely nerve root irritation. There is no evidence of compression of the exiting left C7 nerve root. CT guided biopsy demonstrated serratia. He is being treated with IV antibiotics, ID following. Per neurosurgery he may develop a kyphotic deformity at C6/7 necessitating spinal surgery in the future. Given that he is without compression of the neural elements with only pain limited triceps weakness and paresthesias, surgical intervention (which would involve instrumentation) is not indicated at this time given his ongoing infection. Neurosurgery recommends cervical collar to promote improved cervical alignment and auto-fusion of the C6/7 vertebral bodies, decreasing the probability of the need for surgery in the future. Spinal osteomyelitis . S/p fine-needle aspiration, growing Seratia, on cefepime IV abx per ID Left upper extremity paresthesias H/o IVDU -Likely secondary to IV drug use. - With outside MRI positive for epidural abscess Neurosurgery consulted. Appreciate assistance. - ESR 71, white blood cell count 11.8. Vitals within normal limits. - Await neurosurgery recommendations. Likely will need biopsy for cultures. Then can start antibiotics - Consult infectious disease, ff . S/p fine-needle aspiration, growing Seratia , on cefepime IV abx per ID - [facility] neurosurgery ff - [place] J cervical collar - Continue to monitor progress. Left shoulder pain. Right bundle branch block. Uncertain chronicity. Likely baseline. Likely secondary to epidural abscess as above, however patient does have an incomplete right bundle branch block. Will check troponin. If this is negative , given patient's one-week duration of pain it is unlikely cardiac in nature. = 8/. Troponin negative at less than 0.02. Leukocytosis of 11.8. Likely secondary to infection from epidural abscess. Vitals otherwise stable. Continue to monitor. = /. Follow-up labs from this morning. Tobacco abuse. Cessation counseling provided. IV drug use. Heroin abuse Cessation counseling provided. Insomnia: sleeping aid Discharge Planning: Pending improvement and neurosurgery and ID clearance. s/p CT guided biopsy on 04/21/18 awaiting results Discharge plan: discharge home when cleared by infectious disease and neurosurgery. No plan for surgical intervention patient will need [place] J collar, ordered by neurosurgery. Currently on IV abx cefepime., added levaquin PO by ID Dr Cantrell, Discussed with Dr Grace ID. When asked about last use of heroin and drugs he says initially that last use was 2 days ago ..., then patient says was prior to admission, will do urinary drug screen
--- NOTE | 2018-04-26 08:36 | P.PN ---
Physical Exam Vital signs: Vital Signs 04/25/18 12:00 04/25/18 16:00 04/26/18 00:00 Temperature 98.1 F 97.8 F 97.7 F Pulse Rate 77 78 77 Respiratory Rate 16 18 16 Blood Pressure 117/70 107/57 L 110/61 Pulse Oximetry 98 100 100 Intake & Output 04/25/18 04/26/18 04/26/18 18:59 06:59 18:59 Intake Total 200 / 200 580 / 580 Balance 200 / 200 580 / 580 Weight 78 kg Intake: IV 200 / 200 100 / 100 Maxipime Inj 2,000 MG In NS Inj 200 / 200 100 / 100 100 ML @ 200 mls/hr IV.SIG Q8H [facility] Rx#:[id number] Oral 480 / 480 Other: # Voids 1 4 Date of Last Bowel Movement 04/23/18 04/23/18 Results - Labs CBC & Chem 7: 04/17/18 07:57 04/17/18 07:57 - Procedures s/p CT guided biopsy on 04/21/18 by IR Assessment and Plan - Plan Subjective Interval history: F/o spinal osteomyelitis in IVDU - heroin user active per patient until he came to the hospital S/p fine-needle aspiration, growing Seratia, on cefepime IV abx per ID Numbness in his left hand and mild pain in his neck/ shoulder improving some. No new motor or sensory deficit. Ambulating without any problems. No fever or chills. No n/v/d/c. Eating well. Discharge home. Physical Exam GENERAL: Patient is a young male, appears in nad. CARDIOVASCULAR: Regular rate and rhythm without murmurs, gallops, or rubs. RESPIRATORY: Breath sounds equal bilaterally. No accessory muscle use. GASTROINTESTINAL: Abdomen soft, non-tender, nondistended. MUSCULOSKELETAL: No cyanosis, or edema. BACK: Nontender without obvious deformity. No CVA tenderness. NEURO: Paresthesia left arm improving. 4+/5 left triceps strength, all other 5/ 5 strength, ambulating. Assessment and Plan Mr. Rojas is a 23 y/o male with C6/7 osteomyelitis/discitis. MRI demonstrates destruction of the inferior endplate of C6 and the superior endplate of C7 with a small, non-compressive ventral epidural abscess at this level. Left C7 paresthesias and radicular pain limited triceps weakness are likely nerve root irritation. There is no evidence of compression of the exiting left C7 nerve root. CT guided biopsy demonstrated serratia. He is being treated with IV antibiotics, ID following. Per neurosurgery he may develop a kyphotic deformity at C6/7 necessitating spinal surgery in the future. Given that he is without compression of the neural elements with only pain limited triceps weakness and paresthesias, surgical intervention (which would involve instrumentation) is not indicated at this time given his ongoing infection. Neurosurgery recommends cervical collar to promote improved cervical alignment and auto-fusion of the C6/7 vertebral bodies, decreasing the probability of the need for surgery in the future. Spinal osteomyelitis . S/p fine-needle aspiration, growing Seratia, on cefepime IV abx per ID Left upper extremity paresthesias H/o IVDU -Likely secondary to IV drug use. - With outside MRI positive for epidural abscess Neurosurgery consulted. Appreciate assistance. - ESR 71, white blood cell count 11.8. Vitals within normal limits. - Await neurosurgery recommendations. Likely will need biopsy for cultures. Then can start antibiotics - Consult infectious disease, ff . S/p fine-needle aspiration, growing Seratia , on cefepime IV abx per ID - [facility] neurosurgery ff - [place] J cervical collar - Continue to monitor progress. -cont Levaquine 750 daily x 8 weeks. Or Cipro 750 BID x 8 weeks, can substitute levaquin with cipro. -Fu with neurosurgeon -Monitor labs: CBC CMP every week x 3-4 weeks, then every other week -ESR every 4 weeks -No need to repeat MRI unless clinical failure during or after treatment Left shoulder pain. Right bundle branch block. Uncertain chronicity. Likely baseline. Likely secondary to epidural abscess as above, however patient does have an incomplete right bundle branch block. Will check troponin. If this is negative , given patient's one-week duration of pain it is unlikely cardiac in nature. = 04/17. Troponin negative at less than 0.02. Leukocytosis of 11.8. Likely secondary to infection from epidural abscess. Vitals otherwise stable. Continue to monitor. = 04/17. Follow-up labs from this morning. Tobacco abuse. Cessation counseling provided. IV drug use. Heroin abuse Cessation counseling provided. Insomnia: sleeping aid Discharge Planning: Pending improvement and neurosurgery and ID clearance. s/p CT guided biopsy on 04/21/18 awaiting results Discharge plan: discharge home when cleared by infectious disease and neurosurgery. No plan for surgical intervention patient will need [place] J collar, ordered by neurosurgery. Currently on IV abx cefepime., added levaquin PO by ID Dr Cantrell, Discussed with Dr Grace ID. Discussed with Dr. Grace infectious disease doctor, we will change antibiotics to p.o. and patient can be discharged. Patient has [place] J collar delivered with labs follow-up cont Levaquine 750 daily x 8 weeks. Or Cipro 750 BID x 8 weeks, can substitute levaquin with cipro. Fu with neurosurgeon Monitor labs: CBC CMP every week x 3-4 weeks, then every other week ESR every 4 weeks No need to repeat MRI unless clinical failure during or after treatment
[2018-04-26 08:59] VITALS: TEMP 98.2
[2018-04-26] MEDS: levoFLOXacin 750 MG Tablet PO SCH (09:07)
[2018-04-26 12:03] VITALS: BP 122/59; PULSE 104; RESP 18; O2SAT 94
--- NOTE | 2018-04-26 13:20 | P.DS ---
Date of admission: 04/16/18 18:56 Primary care physician: UNKNOWN Brief History from admission: 23-year-old male with a history of IV heroin abuse who presents with one-week history of constant sharp posterior neck pain, constant left shoulder pain radiating to left arm, with associated left hand paresthesias. Patient denies any fevers, chills, chest pain, shortness of breath, nausea, vomiting, lightheadedness, dizziness, dysuria, diarrhea, constipation. DS: Diagnosis - Discharge Diagnosis (1) Abscess in epidural space of cervical spine Status: Acute (2) Acute osteomyelitis of cervical spine Status: Acute DS: Medications - Discharge Medications Prescriptions: Lactobacillus acidoph-L.bulgar [Lactinex] 1 tab PO BID #120 tab levofloxacin [Levaquin] 750 mg PO DAILY #56 tab DS: Summary Hospital Course: Mr. Rojas is a 23 y/o male with C6/7 osteomyelitis/discitis. MRI demonstrates destruction of the inferior endplate of C6 and the superior endplate of C7 with a small, non-compressive ventral epidural abscess at this level. Left C7 paresthesias and radicular pain limited triceps weakness are likely nerve root irritation. There is no evidence of compression of the exiting left C7 nerve root. CT guided biopsy demonstrated serratia. He is being treated with IV antibiotics, ID following. Per neurosurgery he may develop a kyphotic deformity at C6/7 necessitating spinal surgery in the future. Given that he is without compression of the neural elements with only pain limited triceps weakness and paresthesias, surgical intervention (which would involve instrumentation) is not indicated at this time given his ongoing infection. Neurosurgery recommends cervical collar to promote improved cervical alignment and auto-fusion of the C6/7 vertebral bodies, decreasing the probability of the need for surgery in the future. Spinal osteomyelitis . S/p fine-needle aspiration, growing Seratia, on cefepime IV abx per ID Left upper extremity paresthesias H/o IVDU -Likely secondary to IV drug use. - With outside MRI positive for epidural abscess Neurosurgery consulted. Appreciate assistance. - ESR 71, white blood cell count 11.8. Vitals within normal limits. - Await neurosurgery recommendations. Likely will need biopsy for cultures. Then can start antibiotics - Consult infectious disease, ff . S/p fine-needle aspiration, growing Seratia , on cefepime IV abx per ID - [facility] neurosurgery ff - [place] J cervical collar - Continue to monitor progress. -cont Levaquine 750 daily x 8 weeks. Or Cipro 750 BID x 8 weeks, can substitute levaquin with cipro. -Fu with neurosurgeon -Monitor labs: CBC CMP every week x 3-4 weeks, then every other week -ESR every 4 weeks -No need to repeat MRI unless clinical failure during or after treatment Left shoulder pain. Right bundle branch block. Uncertain chronicity. Likely baseline. Likely secondary to epidural abscess as above, however patient does have an incomplete right bundle branch block. Will check troponin. If this is negative , given patient's one-week duration of pain it is unlikely cardiac in nature. = 04/17. Troponin negative at less than 0.02. Leukocytosis of 11.8. Likely secondary to infection from epidural abscess. Vitals otherwise stable. Continue to monitor. = 04/17. Follow-up labs from this morning. Tobacco abuse. Cessation counseling provided. IV drug use. Heroin abuse Cessation counseling provided. Insomnia: sleeping aid Discharge Planning: Pending improvement and neurosurgery and ID clearance. s/p CT guided biopsy on 04/21/18 awaiting results Discharge plan: discharge home when cleared by infectious disease and neurosurgery. No plan for surgical intervention patient will need [place] J collar, ordered by neurosurgery. Currently on IV abx cefepime., added levaquin PO by ID Dr Cantrell, Discussed with Dr Grace ID. Discussed with Dr. Grace infectious disease doctor, we will change antibiotics to p.o. and patient can be discharged. Patient has [place] J collar delivered with labs follow-up cont Levaquine 750 daily x 8 weeks. Or Cipro 750 BID x 8 weeks, can substitute levaquin with cipro. Fu with neurosurgeon Monitor labs: CBC CMP every week x 3-4 weeks, then every other week ESR every 4 weeks No need to repeat MRI unless clinical failure during or after treatment - Time Spent with Patient Total time spent providing and/or coordinating discharge services: Greater than 30 minutes - Quality: VTE Deep Vein Thrombosis/Pulmonary Embolism Present on Admission: No Exam Vital signs: Vital Signs 04/25/18 16:00 04/26/18 00:00 04/26/18 08:00 Temperature 97.8 F 97.7 F 98.2 F Pulse Rate 78 77 84 Respiratory Rate 18 16 20 Blood Pressure 107/57 L 110/61 119/63 Pulse Oximetry 100 100 96 04/26/18 12:00 Temperature 98.2 F Pulse Rate 104 H Respiratory Rate 18 Blood Pressure 122/59 L Pulse Oximetry 94 L Intake & Output 04/25/18 04/26/18 04/26/18 18:59 06:59 18:59 Intake Total 200 / 200 580 / 580 100 / 100 Balance 200 / 200 580 / 580 100 / 100 Weight 78 kg Intake: IV 200 / 200 100 / 100 100 / 100 Maxipime Inj 2,000 MG In NS Inj 200 / 200 100 / 100 100 / 100 100 ML @ 200 mls/hr IV.SIG Q8H [facility] Rx#:[id number] Oral 480 / 480 Other: # Voids 1 4 Date of Last Bowel Movement 04/23/18 04/23/18 Results Procedures completed during hospitalization: s/p CT guided biopsy on 04/21/18 by IR - Impressions ITS Impressions Chest X-Ray 04/16/18 17:41 CONCLUSION: No active disease. Needle Aspiration CT 04/21/18 00:00 CONCLUSION: 1. Uncomplicated CT guided FNA of the C6-7 disc. Discharge Plan - Discharge Disposition Patient Disposition: 01 Discharge Home - Discharge Condition Condition: Stable - Discharge Order Discharge Orders: Discharge Order (Routine); Ordered 04/26/18 Ordered By: Beba Murphy - Discharge Details Anticipated Discharge Date: 04/21/18 - Physicians Team Primary Care Provider: UNKNOWN, Attending Provider: Beba Murphy Other Providers: Selina Grace MD ; David Angel MD
--- NOTE | 2018-04-26 13:26 | P.PNID ---
Subjective Remarks: no fever improved pain and numbness no new co no fever grew Serratia from the FNA clx Antibiotics: cefe[ppime levaquine Allergies/Adverse Reactions: Allergies No Known Allergies Allergy (Unverified 04/16/18 17:35) Objective Vital Signs 04/25/18 16:00 04/26/18 00:00 04/26/18 08:00 Temperature 97.8 F 97.7 F 98.2 F Pulse Rate 78 77 84 Respiratory Rate 18 16 20 Blood Pressure 107/57 L 110/61 119/63 Pulse Oximetry 100 100 96 04/26/18 12:00 Temperature 98.2 F Pulse Rate 104 H Respiratory Rate 18 Blood Pressure 122/59 L Pulse Oximetry 94 L Intake & Output 04/25/18 04/26/18 04/26/18 18:59 06:59 18:59 Intake Total 200 / 200 580 / 580 100 / 100 Balance 200 / 200 580 / 580 100 / 100 Weight 78 kg Intake: IV 200 / 200 100 / 100 100 / 100 Maxipime Inj 2,000 MG In NS Inj 200 / 200 100 / 100 100 / 100 100 ML @ 200 mls/hr IV.SIG Q8H [facility] Rx#:[id number] Oral 480 / 480 Other: # Voids 1 4 Date of Last Bowel Movement 04/23/18 04/23/18 04/21/18 14:15 Fluid - Other Acid Fast Bacilli Smear - Final No acid fast bacilli seen 04/21/18 14:15 Fluid - Other Mycobacterial Culture - Pending 04/21/18 14:15 Fluid - Other Gram Stain - Final 04/21/18 14:15 Fluid - Other Body Fluid Culture - Final Serratia marcescens Imaging: ITS Impressions Chest X-Ray 04/16/18 17:41 CONCLUSION: No active disease. Needle Aspiration CT 04/21/18 00:00 CONCLUSION: 1. Uncomplicated CT guided FNA of the C6-7 disc. Physical Exam: GENERAL: NAD SKIN: Warm and dry. HEAD: Atraumatic. Normocephalic. EYES: Pupils equal and round. No scleral icterus. No injection or drainage. NECK: Trachea midline. Not tender to palpation RESPIRATORY: No accessory muscle use. GASTROINTESTINAL: Abdomen soft, non-tender, nondistended. Hepatic and splenic margins not palpable. MUSCULOSKELETAL: Extremities without clubbing, cyanosis, or edema. No obvious deformities. Full ROM in L shoulder NEUROLOGICAL: Awake and alert. No obvious cranial nerve deficits. Motor grossly within normal limits. Five out of 5 muscle strength in the arms and legs. Normal speech. PSYCHIATRIC: Appropriate mood and affect; insight and judgment normal. Assessment and Plan - Plan Confirmed C6-7 diskitis, osteo wth sublaxation, Serratia marcenses Mild stable neurological deficit (numbness of some fingers of LUE, intact motor) Fluid collection ? abscess Active IVDU cont Levaquine 750 daily x 8 weeks Or Cipro 750 BID x 8 weeks Fu with neurosurgeon Monitor labs: CBC CMP every week x 3-4 weeks, then every other week ESR every 4 weeks No need to repeat MRI unless clinical failure during or after treatment OK to dc Collar mini Murphy
--- NOTE | 2018-04-26 14:45 | P.PNNS ---
Subjective Interval history: No acute events overnight. Physical Exam Vital signs: Vital Signs 04/25/18 16:00 04/26/18 00:00 04/26/18 08:00 Temperature 97.8 F 97.7 F 98.2 F Pulse Rate 78 77 84 Respiratory Rate 18 16 20 Blood Pressure 107/57 L 110/61 119/63 Pulse Oximetry 100 100 96 04/26/18 12:00 Temperature 98.2 F Pulse Rate 104 H Respiratory Rate 18 Blood Pressure 122/59 L Pulse Oximetry 94 L Intake & Output 04/25/18 04/26/18 04/26/18 18:59 06:59 18:59 Intake Total 200 / 200 580 / 580 100 / 100 Balance 200 / 200 580 / 580 100 / 100 Weight 78 kg Intake: IV 200 / 200 100 / 100 100 / 100 Maxipime Inj 2,000 MG In NS Inj 200 / 200 100 / 100 100 / 100 100 ML @ 200 mls/hr IV.SIG Q8H [facility] Rx#:[id number] Oral 480 / 480 Other: # Voids 1 4 Date of Last Bowel Movement 04/23/18 04/23/18 Narrative: Opens eyes spontaneously Left pupil 5 mm, reactive, right pupil 4 mm reactive Alert and oriented x3 Follows commands x4, 5/5 strength throughout Numbness in left C7 distribution, improving Assessment and Plan - Assessment (1) Acute osteomyelitis of cervical spine Code(s): M46.22 - Osteomyelitis of vertebra, cervical region Status: Acute - Plan Impression: Mr. Rojas is a 23 y/o male with C6/7 osteomyelitis/discitis. MRI demonstrates destruction of the inferior endplate of C6 and the superior endplate of C7 with a small, non-compressive ventral epidural abscess at this level. Left C7 paresthesias are likely nerve root irritation. There is no evidence of compression of the exiting left C7 nerve root. CT guided biopsy demonstrated serratia. He is being treated with IV antibiotics. He and I had an extensive discussion on 04/24/18 about the natural history of his disease process. We discussed the critical importance of him being compliant with his IV antibiotic regimen. We discussed that he may develop a kyphotic deformity at C6/7 necessitating spinal surgery in the future. Given that he is without compression of the neural elements with only pain limited triceps weakness and paresthesias, surgical intervention (which would involve instrumentation) is not indicated at this time given his ongoing infection. I do recommend a cervical collar to promote improved cervical alignment and auto- fusion of the C6/7 vertebral bodies, decreasing the probability of the need for surgery in the future. Recommendations: Continue with antibiotics per infectious disease recommendations. Given extent of infection and the consequences of antibiotic failure, would encourage IV antibiotics for enhanced penetration, but ultimately defer to ID colleagues. [place] J cervical collar (ordered). Wear while out of bed. No need to wear while in bed. Continue to monitor progress. Follow-up with [place] neurosurgeons in ~2 weeks with repeat cervical imaging.
== END 2018-04-26 15:31 | disposition home or self-care (01) ==
LOC: NEPC 13:57 → NEDA 18:56 → N05 20:56
PROVIDERS: ADMIT Hospitalist; ATTEND Hospitalist